=== PATIENT | female | born 1960 | race Caucasian/White ===

== ENCOUNTER 2016-07-29 14:45 | Emergency (ER) | payer OTHER ==
[2016-07-29] MEDS ORDERED: LIDOCAINE 2% 10 ML MDV ONE (15:49)
== END 2016-07-29 16:13 | disposition home or self-care (01) ==
DX: L02.413 Cutaneous abscess of right upper limb (principal); Z87.891 Personal history of nicotine dependence

== ENCOUNTER 2017-02-07 14:43 | Outpatient (CLI) | payer OTHER ==
--- NOTE | 2017-02-08 08:59 | Ultrasound Report ---
PELVIC ULTRASOUND: 02/07/2017 CLINICAL INDICATION: Dysfunctional uterine bleeding. TECHNIQUE: Transabdominal pelvic ultrasound performed for global evaluation. Transvaginal pelvic ul trasound performed for detailed evaluation. Real-time scanning performed and static images obtained. FINDINGS: The uterus is anteverted, measuring 9.6 x 6.3 x 4.7 cm. The endometrial echo complex mario ures 15 mm. There is a 2.7 x 2.2 x 2.0 cm submucosal leiomyoma as well as a 3.5 x 2.8 x 2.5 cm anter ior subserosal leiomyoma and a 2.2 x 1.9 x 1.3 cm posterior intramural leiomyoma. The right ovary me asures 2.1 x 1.4 x 1.0 cm, and appears unremarkable. The left ovary measures 4.7 x 2.3 x 2.1 cm, and contains follicles. No free fluid is seen. IMPRESSION: SUBMUCOSAL LEIOMYOMA, WHICH CAN CONTRIBUTE TO DYSFUNCTIONAL UTERINE BLEEDING. OTHER LEI OMYOMAS IN THE UTERUS. LEFT OVARIAN FOLLICLES. JOB #: [id number] EXT JOB #:[id number]
== END 2017-02-07 14:44 | disposition home or self-care (01) ==
LOC: DI 14:43
PROVIDERS: ATTEND Internal Medicine
DX: D25.0 Submucous leiomyoma of uterus (principal); D25.1 Intramural leiomyoma of uterus; D25.2 Subserosal leiomyoma of uterus
CPT/HCPCS: 76830; 76856

== ENCOUNTER 2017-03-12 15:05 | Emergency (ER) | payer OTHER ==
[2017-03-12] MEDS ORDERED: PROMETHAZINE INJ 25 MG in SODIUM CHLORIDE 0.9% 50 ML IV STA (15:25)
[2017-03-12] MEDS ORDERED: SODIUM CHLORIDE 0.9% 1,000 ML IV ONE (15:25)
--- NOTE | 2017-03-12 15:34 | ED Physician Documentation ---
History of Present Illness - Stated complaint Stated Complaint: NAUSEA - Chief complaint Chief Complaint: General - History obtained from History obtained from: Patient, Family - History of Present Illness Timing: Yesterday Pain level max: 5 Pain level now: 4 - Additonal information Additional information: Patient is a 57-year-old female who complains of the room spinning around her since yesterday. This is accompanied by nausea and vomiting today. Developed a headache approximately 2 hours prior to arrival of coming into the emergency department. Has had a history of vertigo in the past, but states not this bad. Denies any focal weakness or numbness. Any difficulty with speech. No recent illnesses. No recent trauma. No new medications. No travel. Review of Systems Ten Systems: 10 systems reviewed and negative Constitutional: denies: Fever, Chills Nose: denies: Rhinorrhea / runny nose, Congestion Respiratory: denies: Cough GI: reports: Nausea, Vomiting. 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 - Present Medications Home Medications: Ambulatory Orders Medication Instructions Recorded Confirmed Meclizine HCl 25 mg PO Q6H PRN #20 tab.chew 03/12/17 Ondansetron Odt [Zofran] 4 mg TL Q6H PRN #10 tablet 03/12/17 - Allergies Allergies/Adverse Reactions: Allergies Allergy/AdvReac Type Severity Reaction Status Date / Time No Known Drug Allergies Allergy Unverified 06/02/16 07:05 - Social History Does the pt smoke?: No Smoking Status: Former smoker Does the pt drink ETOH?: Yes Does the pt have substance abuse?: No - Immunizations Immunizations are current?: No - POLST Patient has POLST: No PD ED PE NORMAL - Vitals Vital signs reviewed: Yes - General General: Alert and oriented X 3, No acute distress, Well developed/nourished - HEENT HEENT: PERRL, EOMI, Ears normal, Moist mucous membranes, Other (horizontal nystagmus present) - Neck Neck: Supple, no meningeal sign - Cardiac Cardiac: RRR, Strong equal pulses - Respiratory Respiratory: No respiratory distress, Clear bilaterally - Abdomen Abdomen: Soft, Non tender, Non distended - Back Back: No spinal TTP - Derm Derm: Warm and dry, No rash - Extremities Extremities: Normal ROM s pain, No edema - Neuro Neuro: Alert and oriented X 3, 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, No motor deficit, No sensory deficit, Normal speech, Other (+ hallpike to the L) - Psych Psych: Normal mood, Normal affect Results - Vitals Vitals: Vital Signs - 24 hr 03/12/17 03/12/17 15:10 17:56 Temperature 36.3 C L 36.2 C L Heart Rate 92 67 Respiratory 16 18 Rate Blood Pressure 156/90 H 145/69 H O2 Saturation 95 98 Oxygen O2 Source Room air - Labs Labs: Laboratory Tests 03/12/17 03/12/17 15:35 15:35 WBC 10.9 H RBC 4.29 Hgb 11.6 L Hct 35.0 L MCV 81.7 MCH 27.0 MCHC 33.1 RDW 14.3 Plt Count 217 MPV 9.3 Neut # 9.0 H Lymph # 1.2 L Wise # 0.6 Eos # 0.0 Baso # 0.1 Absolute Nucleated RBC 0.00 Nucleated RBCs 0.0 Sodium 139 Potassium 3.5 Chloride 107 Carbon Dioxide 25 Anion Gap 7.0 BUN 10 Creatinine 0.6 Estimated GFR (MDRD) 103 Glucose 122 H Calcium 9.3 Total Bilirubin 0.4 AST 29 ALT 28 Alkaline Phosphatase 69 Total Protein 7.6 Albumin 4.2 Globulin 3.4 Albumin/Globulin Ratio 1.2 Lipase 46 PD MEDICAL DECISION MAKING - ED course Complexity details: re-evaluated patient, considered differential, d/w patient, d/w family ED course: Patient is a 57-year-old female who presents to the emergency department with acute onset of vertigo. Appears to be consistent with BPPV. No evidence of acute stroke. Treated with Phenergan for the nausea, then meclizine for the dizziness. When the vertigo improved, she was then put through a modified somersault maneuver for vertigo which improved her symptoms further. She is able to ambulate in the emergency department and tolerated p.o. No vomiting. Will place on medications for home and have her follow-up with her doctor. Patient counseled regarding signs and symptoms for which I believe and urgent re -evaluation would be necessary. Patient with good understanding of and agreement to plan and is comfortable going home at this time This document was made in part using voice recognition software. While efforts are made to proofread this document, sound alike and grammatical errors may occur. Departure - Departure Disposition: 01 Home, Self Care Clinical Impression: BPPV (benign paroxysmal positional vertigo) Qualifiers: Laterality: left Qualified Code(s): H81.12 - Benign paroxysmal vertigo, left ear Condition: Good Instructions: ED BPV Vertigo Follow-Up: your,doctor in 1 week [Other] Prescriptions: Meclizine HCl 25 mg PO Q6H PRN #20 tab.chew PRN Reason: Vertigo Ondansetron Odt [Zofran] 4 mg TL Q6H PRN #10 tablet PRN Reason: Nausea / Vomiting Comments: Return if you worsen. You can try the yonny maneuver or half somersault maneuver at home. [employer] has videos for both of these. Forms: Activity restrictions Discharge Date/Time: 03/12/17 18:09
[2017-03-12] MEDS ORDERED: PROMETHAZINE 25 MG/1 ML VIAL ONE (15:43)
[2017-03-12 15:54] LABS: ALBUMIN/GLOBULIN RATIO 1.2 (1.0-2.2); BILIRUBIN,TOTAL 0.4 mg/dL (0.2-1.0); CALCIUM 9.3 mg/dL (8.5-10.3); CREATININE 0.6 mg/dL (0.4-1.0); POTASSIUM 3.5 mmol/L (3.5-5.0); TOTAL PROTEIN 7.6 g/dL (6.7-8.2)
[2017-03-12 16:01] LABS: BASOPHILS # (AUTO) 0.1 10^3/uL (0.0-0.1); BASOPHILS % (AUTO) 0.6 %; EOSINOPHILS % (AUTO) 0.3 %; HGB - HEMOGLOBIN 11.6 g/dL (12.0-16.0); LYMPHOCYTES # (AUTO) 1.2 10^3/uL (1.5-3.5); LYMPHOCYTES % (AUTO) 10.9 %; MEAN CORPUSCULAR HGB CONC 33.1 g/dL (32.0-36.0); MEAN CORPUSCULAR VOLUME 81.7 fL (81.0-99.0); MEAN PLATELET VOLUME 9.3 fL (7.9-10.8); MONOCYTES # (AUTO) 0.6 10^3/uL (0.0-1.0); MONOCYTES % (AUTO) 5.8 %; NEUTROPHILS % (AUTO) 82.4 %; RED BLOOD COUNT 4.29 10^6/uL (4.20-5.40); RED CELL DISTRIBUTION WIDTH 14.3 % (12.0-15.0); UNCORRECTED WHITE BLOOD COUNT 10.9 x10^3/uL; WHITE BLOOD COUNT 10.9 x10^3/uL (4.8-10.8)
[2017-03-12] MEDS ORDERED: MECLIZINE 12.5 MG TABLET PO STA (16:09)
[2017-03-12] MEDS ORDERED: MECLIZINE 12.5 MG TABLET PO ONE (16:30)
[2017-03-12 17:59] VITALS: BP 145/69
== END 2017-03-12 18:09 | disposition home or self-care (01) ==
LOC: ED 15:05
DX: H81.10 Benign paroxysmal vertigo, unspecified ear (principal); Z96.659 Presence of unspecified artificial knee joint; Z87.891 Personal history of nicotine dependence
CPT/HCPCS: 36415; 80053; 83690; 85025; 96365; 99283; 99284; A9270; J7040

== ENCOUNTER 2018-09-13 08:16 | Outpatient (CLI) | payer OTHER ==
--- NOTE | 2018-09-13 20:30 | Ultrasound Report ---
Reason: ABNORMAL RESULTS OF LIVER FUNCTION STUDIES Procedure Date: 09/13/2018 Accession Number: [id number] / [id number] Procedure: US - Abdomen Limited CPT Code: FULL RESULT: EXAM: ABDOMEN ULTRASOUND LIMITED, RUQ EXAM DATE: 09/13/2018 08:25 AM. CLINICAL HISTORY: ABNORMAL RESULTS OF LIVER FUNCTION STUDIES. COMPARISON: None. TECHNIQUE: Real-time scanning was performed with static images obtained. FINDINGS: Liver: The liver is echogenic, compatible with fatty infiltration. It measures 17.8 cm. Main portal vein flow: Hepatopetal. Gallbladder: Cholelithiasis. No wall thickening or pericholecystic fluid. Biliary System: CBD measures 3 mm. No intrahepatic or extrahepatic ductal dilatation. Other: No right hydronephrosis. Likely right nephrolithiasis. IMPRESSION: Cholelithiasis, without evidence of acute cholecystitis or biliary obstruction. Fatty infiltration of the liver. Likely right nephrolithiasis, without hydronephrosis. RADIA
== END 2018-09-13 08:17 | disposition home or self-care (01) ==
LOC: DI 08:16
PROVIDERS: ATTEND Nurse Practitioner Family
DX: K80.20 Calculus of gallbladder without cholecystitis without obstruction (principal); K76.0 Fatty (change of) liver, not elsewhere classified
CPT/HCPCS: 76705

== ENCOUNTER 2020-02-22 09:01 | Outpatient (CLI) | payer BC ==
--- NOTE | 2020-02-22 10:03 | CT Report ---
PROCEDURE: LOWER EXTREMITY WO - RT INDICATIONS: PAIN IN RIGHT KNEE TECHNIQUE: Noncontrast 3 mm axial sections acquired of the right knee, with coronal and sagittal reformats. COMPARISON: None. FINDINGS: Image quality: Excellent. Bones: No acute fracture is identified. There is mild to moderate joint space narrowing in the media l femorotibial compartment. Mild joint space narrowing is seen in the lateral and anterior compartmen ts. There is mild patella guy. 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 The tibial tubercle-trochlear groove d istance is 1.3 cm. Soft tissues: There is mild generalized infiltration of the musculature surrounding the knee. No sig nificant joint effusion is present. The articular cartilages, menisci, ligaments, and tendons are not well evaluated with CT. IMPRESSION: 1. No acute fracture. 2. 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 3. Mild patella guy. 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 The tibial tubercle trochlear groove distance is within normal limits. Reviewed by: Francisco Thomas MD on 02/22/2020 10:02 AM PDT Approved by: Francisco Thomas MD on 02/22/2020 10:02 AM PDT Station ID: [id number]
== END 2020-02-22 09:02 | disposition home or self-care (01) ==
LOC: DI 09:01
PROVIDERS: ATTEND Nurse Practitioner Family
DX: M17.11 Unilateral primary osteoarthritis, right knee (principal)

== ENCOUNTER 2020-09-17 09:59 | Emergency (ER) | payer BC ==
--- NOTE | 2020-09-17 10:46 | XRAY Report ---
PROCEDURE: Chest 1 View X-Ray INDICATIONS: Chest pain TECHNIQUE: One view of the chest was acquired. COMPARISON: Thoracic spine radiographs 01/06/2015. FINDINGS: Surgical changes and devices: None. Lungs and pleura: No pleural effusions or pneumothorax. Lungs are clear. Mediastinum: Mediastinal contours appear normal. Heart size is within normal limits. Bones and chest wall: No suspicious bony lesions. Overlying soft tissues appear unremarkable. IMPRESSION: No acute cardiopulmonary abnormality. Reviewed by: Krishna Sorensen MD on 09/17/2020 10:45 AM [facility] Approved by: Krishna Sorensen MD on 09/17/2020 10:45 AM [facility] Station ID: [id number]
[2020-09-17 10:48] LABS: BASOPHILS % (AUTO) 0.7 %; EOSINOPHILS # (AUTO) 0.1 10^3/uL (0.0-0.7); HCT - HEMATOCRIT 46.9 % (37.0-47.0); HGB - HEMOGLOBIN 15.7 g/dL (12.0-16.0); LYMPHOCYTES # (AUTO) 1.3 10^3/uL (1.5-3.5); LYMPHOCYTES % (AUTO) 20.7 %; MEAN CORPUSCULAR HEMOGLOBIN 31.9 pg (27.0-31.0); MEAN CORPUSCULAR HGB CONC 33.5 g/dL (32.0-36.0); MEAN CORPUSCULAR VOLUME 95.3 fL (81.0-99.0); MEAN PLATELET VOLUME 9.8 fL (7.9-10.8); MONOCYTES # (AUTO) 0.5 10^3/uL (0.0-1.0); MONOCYTES % (AUTO) 8.8 %; NEUTROPHILS # (AUTO) 4.1 10^3/uL (1.5-6.6); NEUTROPHILS % (AUTO) 68.6 %; PLT - PLATELET COUNT 263 10^3/uL (130-450); RED BLOOD COUNT 4.92 10^6/uL (4.20-5.40); RED CELL DISTRIBUTION WIDTH 13.6 % (12.0-15.0)
--- NOTE | 2020-09-17 10:54 | ED Physician Documentation ---
PD HPI CHEST PAIN - Stated complaint Stated Complaint: CHEST PX,LT ARM PX - Chief complaint Chief Complaint: Cardiac - History obtained from History obtained from: Patient - History of Present Illness Timing - onset: Last night Timing - onset during: Rest Timing - details: Abrupt onset, Still present (much decreased to just some pain anteriorly now. Worse with breathing.) Quality: Aching, Sharp, Pain Location: Substernal, Left chest Radiation: No: Jaw, Neck, Back Improved by: Rest. No: Other medication (tried Ibuprofen without improvement.) Worsened by: Inspiration, Movement, Palpation Associated symptoms: No: Shortness of air, Nausea, Vomiting Similar symptoms before: Has not had sx before Review of Systems Constitutional: denies: Fever, Chills, Myalgias Nose: denies: Rhinorrhea / runny nose, Congestion Throat: denies: Sore throat Cardiac: reports: Chest pain / pressure. 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 - Present Medications Home Medications: Ambulatory Orders Medication Instructions Recorded Confirmed Meclizine HCl 25 mg PO Q6H PRN #20 tab.chew 03/12/17 Ondansetron Odt [Zofran] 4 mg TL Q6H PRN #10 tablet 03/12/17 Naproxen [EC-Naproxen] 500 mg PO BID #20 09/17/20 Oxycodone HCl/Acetaminophen 1 each PO Q6H PRN #20 tablet 09/17/20 [Percocet 5-325 mg Tablet] - Allergies Allergies/Adverse Reactions: Allergies Allergy/AdvReac Type Severity Reaction Status Date / Time No Known Drug Allergies Allergy Verified 09/17/20 10:09 - Social History Does the pt smoke?: No Smoking Status: Never smoker Does the pt drink ETOH?: Yes Does the pt have substance abuse?: No - Immunizations Immunizations are current?: No - POLST Patient has POLST: No PD ED PE NORMAL - Vitals Vital signs reviewed: Yes - General General: Alert and oriented X 3, No acute distress, Well developed/nourished - HEENT HEENT: Atraumatic - Neck Neck: Supple, no meningeal sign, No adenopathy - Cardiac Cardiac: RRR, No murmur - Respiratory Respiratory: Clear bilaterally, Other (some chestwall tenderness left sternal border) - Abdomen Abdomen: Soft, Non tender (no tenderness in GB area. ) - Derm Derm: Normal color, Warm and dry, No rash - Neuro Neuro: Alert and oriented X 3, No motor deficit, Normal speech Results - Vitals Vitals: Vital Signs - 24 hr 09/17/20 09/17/20 09/17/20 10:09 10:41 11:11 Temperature 36.9 C Heart Rate 84 84 66 Respiratory 20 18 19 Rate Blood Pressure 171/110 H 122/83 H 196/107 H O2 Saturation 94 100 93 09/17/20 09/17/20 09/17/20 11:30 12:00 12:30 Temperature Heart Rate 66 62 68 Respiratory 15 14 16 Rate Blood Pressure 209/101 H 184/100 H 183/99 H O2 Saturation 95 94 95 Oxygen O2 Source Room air - EKG (time done) 10:02 Rhythm: NSR (with some baseline artifact) [place]: Normal Intervals: Normal IA QRS: Normal Ischemia: Normal ST segments. No: ST elevation c/w ischemia, ST depression - Labs Labs: Laboratory Tests 09/17/20 09/17/20 09/17/20 10:27 10:27 10:27 WBC 6.0 RBC 4.92 Hgb 15.7 Hct 46.9 MCV 95.3 MCH 31.9 H MCHC 33.5 RDW 13.6 Plt Count 263 MPV 9.8 Neut # (Auto) 4.1 Lymph # (Auto) 1.3 L [place] # (Auto) 0.5 Eos # (Auto) 0.1 Baso # (Auto) 0.0 Absolute Nucleated RBC 0.00 Nucleated RBC % 0.0 Sodium 136 Potassium 3.9 Chloride 100 L Carbon Dioxide 26 Anion Gap 10.0 BUN 8 Creatinine 0.7 Estimated GFR (MDRD) 86 L Glucose 104 H Calcium 9.1 Total Bilirubin 1.1 H AST 83 H ALT 94 H Alkaline Phosphatase 108 Troponin I High Sens 3.3 Total Protein 7.3 Albumin 3.7 Globulin 3.6 Albumin/Globulin Ratio 1.0 Lipase 34 - Rads (name of study) chest xray 1 view Radiology: Prelim report reviewed (no acute process), See rad report PD MEDICAL DECISION MAKING - ED course Complexity details: reviewed results, considered differential (onset pain last night so negative trop should be definitive. CXR to assess for pulmonary cause, given the pleuritic component. ), d/w patient Departure - Departure Disposition: 01 Home, Self Care Clinical Impression: Chest pain Qualifiers: Chest pain type: chest pain on breathing Qualified Code(s): R07.1 - Chest pain on breathing Condition: Stable Record reviewed to determine appropriate education?: Yes Instructions: ED Chest Pain Costochondritis Prescriptions: Naproxen [EC-Naproxen] 500 mg PO BID #20 Oxycodone HCl/Acetaminophen [Percocet 5-325 mg Tablet] 1 each PO Q6H PRN #20 tablet PRN Reason: pain Comments: Your chest x-ray, EKG, blood tests are normal without any signs of more significant cause of your pain. The components of it sound musculoskeletal and perhaps some inflammation around the lung called pleurisy. Would treat this with anti-inflammatories such as naproxen twice daily for 7 to 10 days. Take it with food. To that add Tylenol or pain medicine if needed for worse pain. Recheck if not improving well over the next several days and resolved by 5 to 7 days. Return if worsening. Discharge Date/Time: 09/17/20 12:31
[2020-09-17 11:04] LABS: ALBUMIN 3.7 g/dL (3.2-5.5); BILIRUBIN,TOTAL 1.1 mg/dL (0.2-1.0); CALCIUM 9.1 mg/dL (8.5-10.3); CREATININE 0.7 mg/dL (0.4-1.0); POTASSIUM 3.9 mmol/L (3.5-5.0); TOTAL PROTEIN 7.3 g/dL (6.7-8.2)
[2020-09-17] MEDS ORDERED: KETOROLAC 30 MG/ML VIAL IVP STA (11:08)
[2020-09-17] MEDS ORDERED: ONDANSETRON 4 MG/2 ML VIAL IVP STA (11:09)
[2020-09-17] MEDS ORDERED: HYDROmorphone 1 MG/ML CARPUJECT IVP STA (11:09)
[2020-09-17 12:31] VITALS: BP 183/99
== END 2020-09-17 12:31 | disposition home or self-care (01) ==
LOC: ED 09:59
DX: R07.1 Chest pain on breathing (principal)
CPT/HCPCS: 36415; 71045; 80053; 83690; 84484; 85025; 93005; 96374; 96375; 99284; J1170

== ENCOUNTER 2021-03-26 08:00 | Outpatient (CLI) | payer BC ==
[2021-03-26 15:19] LABS: BASOPHILS # (AUTO) 0.1 10^3/uL (0.0-0.1); BASOPHILS % (AUTO) 1.2 %; EOSINOPHILS # (AUTO) 0.1 10^3/uL (0.0-0.7); EOSINOPHILS % (AUTO) 1.2 %; HCT - HEMATOCRIT 50.3 % (37.0-47.0); HGB - HEMOGLOBIN 16.7 g/dL (12.0-16.0); LYMPHOCYTES % (AUTO) 17.4 %; MEAN CORPUSCULAR HEMOGLOBIN 33.6 pg (27.0-31.0); MEAN CORPUSCULAR HGB CONC 33.2 g/dL (32.0-36.0); MEAN CORPUSCULAR VOLUME 101.2 fL (81.0-99.0); MEAN PLATELET VOLUME 10.1 fL (7.9-10.8); MONOCYTES # (AUTO) 0.5 10^3/uL (0.0-1.0); MONOCYTES % (AUTO) 8.7 %; NEUTROPHILS # (AUTO) 4.3 10^3/uL (1.5-6.6); NEUTROPHILS % (AUTO) 71.3 %; PLT - PLATELET COUNT 223 10^3/uL (130-450); RED BLOOD COUNT 4.97 10^6/uL (4.20-5.40); RED CELL DISTRIBUTION WIDTH 14.3 % (12.0-15.0)
[2021-03-26 15:36] LABS: ALBUMIN 3.8 g/dL (3.2-5.5); BILIRUBIN,TOTAL 2.6 mg/dL (0.2-1.0); CALCIUM 9.2 mg/dL (8.5-10.3); CREATININE 0.5 mg/dL (0.4-1.0); POTASSIUM 3.8 mmol/L (3.5-5.0); TOTAL PROTEIN 7.5 g/dL (6.7-8.2)
[2021-03-26 15:47] LABS: THYROID STIMULATING HORMONE 4.28 uIU/mL (0.34-5.60)
== END 2021-03-26 23:59 | disposition home or self-care (01) ==
LOC: LAB.S 08:00
PROVIDERS: ATTEND Emergency Medicine
DX: R03.0 Elevated blood-pressure reading, without diagnosis of hypertension (principal)
CPT/HCPCS: 36415; 80053; 84443; 85025

== ENCOUNTER 2021-06-10 07:51 | Outpatient (CLI) | payer BC ==
--- NOTE | 2021-06-10 12:10 | Ultrasound Report ---
PROCEDURE: Abdomen Limited INDICATIONS: ELEVATED LIVER ENZYMES TECHNIQUE: Real-time focused scanning was performed of the abdomen, with image documentation. COMPARISON: September 13, 2018 TECHNIQUE: Sonographic evaluation of the abdomen was performed. Evaluation was targeted in the right upper quadrant. FINDINGS: AORTA: The visualized abdominal aorta is normal. IVC: The visualized IVC is normal. LIVER: Increased echogenicity of the liver, compatible hepatic steatosis. The liver measures 22.5 c m in length. The portal vein is patent. PANCREAS: The visualized portions of the pancreas are normal. Gallbladder and biliary tree: No gallbladder wall thickening or pericholecystic fluid. Shadowing ga llstones are seen, measuring up to 1.2 cm. The common bile duct measures 4.1 mm RIGHT KIDNEY: No hydronephrosis. Measuring 11.5 cm in length. The renal cortex thickness measures 1 .3 cm. Echogenic focus in the interpolar region measuring up to 8 mm, compatible with nephrolithiasis . No ascites. IMPRESSION: 1.Hepatic steatosis. 2.Cholelithiasis. 3.Right nephrolithiasis. Reviewed by: Arley Colmenares MD on 06/10/2021 12:08 PM [facility] Approved by: Arley Colmenares MD on 06/10/2021 12:08 PM [facility] Station ID: [id number]
== END 2021-06-10 07:52 | disposition home or self-care (01) ==
LOC: DI 07:51
PROVIDERS: ATTEND Nurse Practitioner Family
DX: R74.01 Elevation of levels of liver transaminase levels (principal); K76.0 Fatty (change of) liver, not elsewhere classified; K80.20 Calculus of gallbladder without cholecystitis without obstruction; N20.0 Calculus of kidney

== ENCOUNTER 2021-09-12 09:35 | Emergency (ER) | payer BC ==
[2021-09-12] MEDS ORDERED: ONDANSETRON ODT 4 MG TABLET TL STA (09:43)
[2021-09-12 10:05] LABS: BASOPHILS % (AUTO) 0.5 %; EOSINOPHILS # (AUTO) 0.1 10^3/uL (0.0-0.7); EOSINOPHILS % (AUTO) 1.4 %; HCT - HEMATOCRIT 48.1 % (37.0-47.0); HGB - HEMOGLOBIN 16.3 g/dL (12.0-16.0); LYMPHOCYTES # (AUTO) 1.1 10^3/uL (1.5-3.5); LYMPHOCYTES % (AUTO) 13.4 %; MEAN CORPUSCULAR HGB CONC 33.9 g/dL (32.0-36.0); MEAN CORPUSCULAR VOLUME 97.4 fL (81.0-99.0); MEAN PLATELET VOLUME 9.8 fL (7.9-10.8); MONOCYTES # (AUTO) 0.8 10^3/uL (0.0-1.0); MONOCYTES % (AUTO) 10.5 %; NEUTROPHILS # (AUTO) 5.8 10^3/uL (1.5-6.6); NEUTROPHILS % (AUTO) 73.8 %; PLT - PLATELET COUNT 246 10^3/uL (130-450); RED BLOOD COUNT 4.94 10^6/uL (4.20-5.40); RED CELL DISTRIBUTION WIDTH 13.5 % (12.0-15.0); WHITE BLOOD COUNT 7.8 x10^3/uL (4.8-10.8)
[2021-09-12 10:08] LABS: BILIRUBIN,URINE NEGATIVE (NEGATIVE); GLUCOSE, URINE (UA) NEGATIVE (NEGATIVE); KETONES,URINE (UA) NEGATIVE (NEGATIVE); LEUKOCYTE ESTERASE, URINE NEGATIVE (NEGATIVE); NITRITE,URINE NEGATIVE (NEGATIVE); OCCULT BLOOD,URINE TRACE-INTA (NEGATIVE); PROTEIN,URINE NEGATIVE (NEGATIVE); UROBILINOGEN,URINE 0.2 (NORMAL) E.U./dL (NORMAL)
[2021-09-12 10:09] LABS: CLARITY,URINE CLEAR (CLEAR)
[2021-09-12 10:21] LABS: ALBUMIN 3.8 g/dL (3.2-5.5); ALBUMIN/GLOBULIN RATIO 1.1 (1.0-2.2); BILIRUBIN,TOTAL 1.9 mg/dL (0.2-1.0); CALCIUM 9.9 mg/dL (8.5-10.3); CREATININE 1.4 mg/dL (0.4-1.0); POTASSIUM 3.8 mmol/L (3.5-5.0); TOTAL PROTEIN 7.3 g/dL (6.7-8.2)
--- NOTE | 2021-09-12 10:25 | ED Physician Documentation ---
PD HPI ABD PAIN - Stated complaint Stated Complaint: LOWER BACK PX - Chief complaint Chief Complaint: Abd Pain - History obtained from History obtained from: Patient - History of Present Illness Timing - onset: Today, Last night Timing - duration: Hours Timing - details: Abrupt onset, Still present Quality: Aching, Sharp, Pain Location: RLQ Radiation: Right flank Improved by: No: Eating, Laying still Worsened by: No: Eating, Moving, Breathing Associated symptoms: Nausea, Vomiting (several times after onset of severe pain. No vomiting this morning.). No: Fever Similar symptoms before: Has not had sx before Recently seen: Clinic (seen about month or two ago for some abd pains. She states had USN RUQ that showed stones in the kidneys, gallstones, and some fatty liver.) Review of Systems Constitutional: denies: Fever, Chills Nose: denies: Rhinorrhea / runny nose, Congestion Throat: denies: Sore throat Respiratory: denies: Cough GI: reports: Abdominal Pain, Nausea, Vomiting. denies: Constipation, Diarrhea, Bloody / black stool : reports: Hematuria. 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: Dilation and currettage - Present Medications Home Medications: Ambulatory Orders Medication Instructions Recorded Confirmed Fluoxetine HCl [Prozac] 20 mg PO DAILY 09/12/21 09/12/21 HYDROcod/ACETAM 5/325 [[place] 5/325] 1 ea PO Q6H PRN #12 tablet 09/12/21 Losartan [Cozaar] 50 mg PO DAILY 09/12/21 09/12/21 Naproxen 250 mg PO TID 5 Days #15 tablet 09/12/21 Ondansetron Odt [Zofran] 4 mg TL Q6H PRN #10 tablet 09/12/21 - Allergies Allergies/Adverse Reactions: Allergies Allergy/AdvReac Type Severity Reaction Status Date / Time No Known Drug Allergies Allergy Verified 09/12/21 09:40 - Social History Does the pt smoke?: No Smoking Status: Never smoker Does the pt drink ETOH?: Yes Does the pt have substance abuse?: No - Immunizations Immunizations are current?: No - POLST Patient has POLST: No PD ED PE NORMAL - Vitals Vital signs reviewed: Yes - General General: Alert and oriented X 3, Well developed/nourished, Other (appears in pain) - Neck Neck: Supple, no meningeal sign, No adenopathy - Cardiac Cardiac: RRR, No murmur - Respiratory Respiratory: Clear bilaterally - Abdomen Abdomen: Normal bowel sounds, Soft, Non distended, No organomegaly, Other (tender right lower abd and right flank area. ) - Female Female : Deferred - Rectal Rectal: Deferred - Derm Derm: Normal color, Warm and dry - Extremities Extremities: No tenderness to palpate, Normal ROM s pain, No edema, No calf tenderness / cord - Neuro Neuro: Alert and oriented X 3, No motor deficit, Normal speech Results - Vitals Vitals: Vital Signs - 24 hr 09/12/21 12:50 Temperature 36.7 C Heart Rate 65 Respiratory 16 Rate Blood Pressure 147/73 H O2 Saturation 96 Oxygen O2 Source Room air - Labs Labs: Laboratory Tests 09/12/21 09/12/21 09/12/21 09:53 09:53 09:53 WBC 7.8 RBC 4.94 Hgb 16.3 H Hct 48.1 H MCV 97.4 MCH 33.0 H MCHC 33.9 RDW 13.5 Plt Count 246 MPV 9.8 Neut # (Auto) 5.8 Lymph # (Auto) 1.1 L [place] # (Auto) 0.8 Eos # (Auto) 0.1 Baso # (Auto) 0.0 Absolute Nucleated RBC 0.00 Nucleated RBC % 0.0 Sodium 139 Potassium 3.8 Chloride 102 Carbon Dioxide 25 Anion Gap 12.0 BUN 14 Creatinine 1.4 H Estimated GFR (MDRD) 38 L Glucose 114 H Calcium 9.9 Total Bilirubin 1.9 H AST 64 H ALT 91 H Alkaline Phosphatase 122 H Total Protein 7.3 Albumin 3.8 Globulin 3.5 Albumin/Globulin Ratio 1.1 Lipase 37 Urine Color LIGHT YELLOW Urine Clarity CLEAR Urine pH 7.0 Ur Specific [place] <=1.005 Urine Protein NEGATIVE Urine Glucose (UA) NEGATIVE Urine Ketones NEGATIVE Urine Occult Blood TRACE-INTA Urine Nitrite NEGATIVE Urine Bilirubin NEGATIVE Urine Urobilinogen 0.2 (NORMAL) Ur Leukocyte Esterase NEGATIVE Ur Microscopic Review NOT INDICATED Urine Culture Comments NOT INDICATED - Rads (name of study) abd/pelvic CT Radiology: Prelim report reviewed (no acute process. No renal/ureteral stones.), See rad report PD MEDICAL DECISION MAKING - ED course Complexity details: reviewed results (CT without acute process. PAtient was feeling improved with pain meds prior to CT and on recheck has only mild pain left. Consider stone passed prior to CT. SHe did have stone right kidney recently and none now, so presume it passed. ), considered differential (sounds like kidney stone pain in character. REcent U/S Jun 2021 showed 8 mm stone right kidney. CAn get CT to see if passing, since was rather larger.), d/w patient Departure - Departure Disposition: 01 Home, Self Care Clinical Impression: Flank pain, Ureterolithiasis Nausea and vomiting Qualifiers: Vomiting type: unspecified Qualified Code(s): R11.2 - Nausea with vomiting, unspecified Condition: Stable Record reviewed to determine appropriate education?: Yes Instructions: ED Stone Renal Passed Follow-Up: NORMA HOUSTON ARNP [Primary Care Provider] - Prescriptions: Naproxen 250 mg PO TID 5 Days #15 tablet HYDROcod/ACETAM 5/325 [[place] 5/325] 1 ea PO Q6H PRN #12 tablet PRN Reason: Pain Ondansetron Odt [Zofran] 4 mg TL Q6H PRN #10 tablet PRN Reason: Nausea / Vomiting Comments: Your urine test appears normal here without any signs of infection. The CT scan does not show any kidney stones. I would presume you passed the one that you have had recently and your episode of pain with its intensity associated with nausea and such likely represented the passing of the stone this morning. No other abnormalities acutely on the CT scan to account for your pain. You do have incidental gallstones but you are not having pain in that area. There is also some hernias noted around the bellybutton area but again you are not tender in those areas. You may still experience some aching and pain over the next couple of days. Stay well-hydrated. Consider anti-inflammatory of naproxen 2-3 times daily with food. To that add ondansetron if needed for nausea and Tylenol if needed for pain. It will be unlikely to have worse pain at this point but I can prescribe a few hydrocodone tablets in case. I transmitted your prescriptions to [facility] in [place]. Follow-up with your primary care if your occurring or persisting episodes of back or abdominal pain. Other considerations for the pain could be musculoskeletal or nerve root type impingement. However your previous symptoms and current symptoms would be more suggestive of the stone. I am prescribing a short course of narcotic pain medication for you. These are potentially dangerous and addictive medications that should be used carefully. These medications may constipate you. Take an [id number] stool softener such as docusate twice daily with plenty of water while taking these medications. If you go 24 hours without a bowel movement, take plnn-xof-tfabell MiraLAX, per package instructions. Do not drink or drive while taking these medications. If you received narcotic or sedating medications while in the emergency department do not drive for 24 hours. Store this medication in a safe, secure place and out of reach of children. It is a violation of federal law to give or sell this medication to another person or to use in a manner other than prescribed. The ED will not refill narcotic prescriptions, including prescriptions lost or stolen. You can dispose of unwanted medications at the [facility]'s office or at several pharmacies such as [facility]. Discharge Date/Time: 09/12/21 12:51
[2021-09-12] MEDS ORDERED: ONDANSETRON 4 MG/2 ML VIAL IVP STA (10:34)
[2021-09-12] MEDS ORDERED: KETOROLAC 30 MG/ML VIAL IVP STA (10:34)
[2021-09-12] MEDS ORDERED: HYDROmorphone 1 MG/ML CARPUJECT IVP STA (10:34)
[2021-09-12] MEDS ORDERED: SODIUM CHLORIDE 0.9% 1,000 ML IV STA (10:34)
--- NOTE | 2021-09-12 11:18 | CT Report ---
PROCEDURE: Abdomen/Pelvis WO INDICATIONS: right flank/abd pain TECHNIQUE: Noncontrast 5 mm thick sections acquired from the diaphragms to the symphysis. 5 mm coronal and sagi ttal reformats were then performed. For radiation dose reduction, the following was used: automated exposure control, adjustment of mA and/or kV according to patient size. COMPARISON: None. FINDINGS: Image quality: Excellent. ABDOMEN: Lung bases: Lung bases are clear. Heart size is normal. Solid organs: Liver and spleen are normal in size. Gallbladder contains multiple gallstones. There is no gallbladder wall thickening. Pancreas is normal in contours. No adrenal nodules. Kidneys are normal in size, without hydronephrosis or nephrolithiasis. Peritoneum and bowel: Unenhanced bowel loops demonstrate normal wall thickness and caliber. Scattere d diverticulosis without evidence of diverticulitis. No free fluid or air. Nodes and vessels: No retroperitoneal or mesenteric adenopathy by size criteria. Aorta and inferior vena cava are normal in caliber. Miscellaneous: The anterior rectus musculature is thin. There are multiple small ventral hernias pres ent. There is subtle inflammatory change in the herniated subcutaneous fat. PELVIS: Genitourinary: Bladder wall thickness is normal. Miscellaneous: No inguinal hernias or adenopathy. Uterus is surgically absent. Bones: No suspicious bony lesions. No vertebral body compression fractures. IMPRESSION: 1. Cholelithiasis. 2. No evidence of renal stone, ureteral stone, or hydronephrosis. 3. Multiple small ventral abdominal hernias containing herniated fat. There is mild inflammatory beckman ge within the inflammatory fat. 4. No evidence of acute abdominal process. Question: Does the location of patient pain correlate with the ventral hernias? Reviewed by: Neville Shah MD on 09/12/2021 10:[address] [facility] Approved by: Neville Shah MD on 09/12/2021 10:[address] [facility] Station ID: [id number]
[2021-09-12 12:51] VITALS: BP 147/73
== END 2021-09-12 12:51 | disposition home or self-care (01) ==
LOC: ED 09:35
DX: N20.1 Calculus of ureter (principal)
CPT/HCPCS: 36415; 74176; 80053; 81003; 83690; 85025; 96361; 96374; 96375; 99282; 99284; J1170; Q0162; 81001; 87086

== ENCOUNTER 2022-12-10 08:00 | Outpatient (CLI) | payer BC | END 2022-12-10 23:59 | disposition home or self-care (01) | LOC: LAB 08:00 | PROVIDERS: ATTEND Physician Assistant Medical | DX: L03.114 Cellulitis of left upper limb (principal) | CPT/HCPCS: 87070; 87205 ==

== ENCOUNTER 2024-02-17 11:57 | Emergency (ER) | payer BC, OTHER ==
--- NOTE | 2024-02-17 12:10 | ED Physician Documentation ---
PD HPI ABD PAIN - Stated complaint Stated Complaint: UPPER ABD PAIN - Chief complaint Chief Complaint: Abd Pain - History obtained from History obtained from: Patient - History of Present Illness Timing - onset: How many weeks ago (3) Timing - duration: Weeks (3) Timing - details: Gradual onset, Still present, Waxing and waning Quality: Cramping, Aching, Pain Location: RUQ, Epigastric Associated symptoms: Nausea, Vomiting, Loss of appetite, Weight loss (states 20 lbs in 3 weeks.). No: Fever, Diarrhea, Dysuria Similar symptoms before: Has not had sx before Recently seen: Clinic (seen in PCP clinic 2 days ago and had labs drawn showing elevated LFTs. seen again today, and referred to ED for testing/eval.) Review of Systems Constitutional: denies: Fever, Chills Nose: denies: Rhinorrhea / runny nose, Congestion Throat: denies: Sore throat Respiratory: denies: Cough Neurologic: reports: Generalized weakness. 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: Dilation and currettage - Present Medications Home Medications: Ambulatory Orders Medication Instructions Recorded Confirmed Fluoxetine HCl [Prozac] 20 mg PO DAILY 09/12/21 09/12/21 HYDROcod/ACETAM 5/325 [[place] 5/325] 1 ea PO Q6H PRN #12 tablet 09/12/21 Losartan [Cozaar] 50 mg PO DAILY 09/12/21 09/12/21 Naproxen 250 mg PO TID 5 Days #15 tablet 09/12/21 Ondansetron Odt [Zofran] 4 mg TL Q6H PRN #10 tablet 09/12/21 Dicyclomine [Bentyl] 10 mg PO BID PRN #20 cap 02/17/24 HYDROcod/ACETAM 5/325 [[place] 5/325] 1 ea PO Q6H PRN #18 tablet 02/17/24 Ondansetron Odt [Zofran] 4 mg TL Q6H PRN #20 tablet 02/17/24 Pantoprazole [Protonix] 40 mg PO DAILY 30 Days #30 tablet 02/17/24 Sucralfate [Carafate] 1 gm PO ACHS 5 Days #200 ml 02/17/24 - Allergies Allergies/Adverse Reactions: Allergies Allergy/AdvReac Type Severity Reaction Status Date / Time No Known Drug Allergies Allergy Verified 02/17/24 12:08 - Social History Does the pt smoke?: No Smoking Status: Never smoker Does the pt drink ETOH?: Yes ETOH Use: Liquor (had been more regular, currently about 2 shots of liquor daily. ) Does the pt have substance abuse?: No - Immunizations Immunizations are current?: No - POLST Patient has POLST: No PD ED PE NORMAL - Vitals Vital signs reviewed: Yes - General General: Alert and oriented X 3, Well developed/nourished Results - Vitals Vitals: Vital Signs - 24 hr 02/17/24 02/17/24 02/17/24 12:03 14:38 16:23 Temperature 36.7 C Heart Rate 91 75 80 Respiratory 18 18 18 Rate Blood Pressure 164/89 H 152/80 H 150/86 H O2 Saturation 95 97 02/17/24 19:39 Temperature Heart Rate 79 Respiratory 18 Rate Blood Pressure 160/88 H O2 Saturation 96 Oxygen O2 Source Room air - Labs Labs: Laboratory Tests 02/17/24 02/17/24 02/17/24 12:21 12:21 14:10 WBC 9.1 RBC 4.60 Hgb 15.7 Hct 46.8 MCV 101.7 H MCH 34.1 H MCHC 33.5 RDW 12.7 Plt Count 326 MPV 10.0 Neut # (Auto) 6.5 Lymph # (Auto) 1.6 Preston # (Auto) 0.8 Eos # (Auto) 0.1 Baso # (Auto) 0.1 Absolute Nucleated RBC 0.00 Nucleated RBC % 0.0 Sodium 135 Potassium 3.9 Chloride 101 Carbon Dioxide 27 Anion Gap 7.0 BUN 7 Creatinine 0.5 L Estimated GFR (MDRD) 125 Glucose 115 H Calcium 10.4 H Total Bilirubin 1.6 H AST 202 H ALT 93 H Alkaline Phosphatase 185 H Total Protein 7.6 Albumin 3.9 Globulin 3.7 Albumin/Globulin Ratio 1.1 Lipase 66 Urine Color DARK YELLOW Urine Clarity CLEAR Urine pH 6.0 Ur Specific Henderson 1.020 Urine Protein NEGATIVE Urine Glucose (UA) NEGATIVE Urine Ketones NEGATIVE Urine Occult Blood MODERATE H Urine Nitrite NEGATIVE Urine Bilirubin SMALL H Urine Urobilinogen 1 (NORMAL) Ur Leukocyte Esterase TRACE H Urine RBC 6-10 H Urine WBC 0-3 Ur Squamous Epith Cells FEW Squamous Amorphous Sediment Few Urine Bacteria Rare Urine Mucus Few Strands Ur Microscopic Review INDICATED Urine Culture Comments INDICATED PD Medical Decision Making - ED course Complexity details: reviewed results (CT abd with gallstones but not apparent cholecystitis. CBD appears normal. However, does have pain and LFT elevation, so I felt MRCP appropriate as CT not fully accurate for this. MRCP without obstruction of CBD nor any signs cholesystitis. incidental 2 mm cyst at tail pancreas. No other acute. ), re-evaluated patient (pain meds given at interval. Prolonged ED stay for labs, imaging and then MRCP with report. ), considered differential (upper abd pain and elevated LFTs. consider GB, CBD obstruction as concern. Can get CT vs US. If concern for CBD obstruction, MRCP would be most accurate. ), d/w patient, d/w corporate learning consultant (ODr. Joyce just phone consult. Review of prior labs show elevated LFTs for pt on record since 2020. Prior gallstones on US 2020. Does not appear acute process and no signs of gallbladder inflammation. Presume pain is otherwise, such as gastritis/duodenitis and suggests treating that way. ) Departure - Departure Disposition: 01 Home, Self Care Clinical Impression: Right upper quadrant abdominal pain, Elevated liver enzymes, Abnormal weight loss, Nausea and vomiting, Gastric ulcer Condition: Stable Record reviewed to determine appropriate education?: Yes Instructions: ED PUD Vs Gastritis Follow-Up: Day Wheeler ARNP [Primary Care Provider] - Prescriptions: Dicyclomine [Bentyl] 10 mg PO BID PRN #20 cap PRN Reason: Abdominal Pain Sucralfate [Carafate] 1 gm PO ACHS 5 Days #200 ml HYDROcod/ACETAM 5/325 [[place] 5/325] 1 ea PO Q6H PRN #18 tablet PRN Reason: Pain Pantoprazole [Protonix] 40 mg PO DAILY 30 Days #30 tablet Ondansetron Odt [Zofran] 4 mg TL Q6H PRN #20 tablet PRN Reason: Nausea / Vomiting Comments: Your CT scan showed some gallstones but no obvious gallbladder wall thickening. They did not very well identify the common bile duct though it appeared normal. However given your elevated liver enzymes and the continued pain even having, the concern was for clogging of the bile duct. Therefore the MRCP was performed to best evaluate that. This is a very accurate at looking at that area and it showed no signs of gallbladder wall thickening or inflammation and no signs of any obstruction/stone/blockage of the common bile duct. They saw an incidental 2 mm cyst at the tail of the pancreas. This did not appear at all like a tumor and is a common finding. Otherwise there is a little bit of enlarged liver. The remainder of your abdomen and pelvis on the CT scan did not show any other acute abnormality. Your blood tests showed elevation of liver enzymes but comparable to ones you have had over the last 2 or 3 years. This may be more of a chronic finding for you or repeated mild elevations related to illness or vomiting or can be from alcohol use or other irritants. At this point it does not appear to be an acute liver inflammation. With all this said, there are processes that would hurt that would not show up on the above testing. The above tests were necessary to exclude other problems. I did talk with our on-call surgeon and putting the information together we treated most likely as a gastritis/ulcer. It can even be irritation not only in the stomach but the first part of the intestine (duodenum) which would give the pain more over to the gallbladder area. The suggestion is to treat as an ulcer with a acid reducing medicine called pantoprazole daily for the next month combined with coating the stomach periodically through the day for the next 5 days anyway to reduce irritation and discomfort. This is called sacral fate. Additionally ondansetron if needed for nausea and then some amounts of Tylenol if needed for pains. I would avoid anti-inflammatory such as ibuprofen or naproxen as this would further irritate an ulcer. To these add dicyclomine if needed for spasm/pain or hydrocodone/acetaminophen if needed for worse pain. SL several prescriptions to the [facility] in [place]. [place] [facility] [place]. Return to the ER if worsening symptoms despite the above medicines. I would defer to your primary care to see if she wanted to set you up for a upper endoscopy to further evaluate regarding ulcer. When I talk to the surgeon professional system administrator, that was a possible recommendation but is not required in order to start treating it as ulcer for now. Forms: PCP List Discharge Date/Time: 02/17/24 19:39
[2024-02-17 12:26] LABS: BASOPHILS # (AUTO) 0.1 10^3/uL (0.0-0.1); BASOPHILS % (AUTO) 0.9 %; EOSINOPHILS # (AUTO) 0.1 10^3/uL (0.0-0.7); EOSINOPHILS % (AUTO) 1.1 %; HCT - HEMATOCRIT 46.8 % (37.0-47.0); HGB - HEMOGLOBIN 15.7 g/dL (12.0-16.0); LYMPHOCYTES # (AUTO) 1.6 10^3/uL (1.5-3.5); LYMPHOCYTES % (AUTO) 17.2 %; MEAN CORPUSCULAR HEMOGLOBIN 34.1 pg (27.0-31.0); MEAN CORPUSCULAR HGB CONC 33.5 g/dL (32.0-36.0); MEAN CORPUSCULAR VOLUME 101.7 fL (81.0-99.0); MONOCYTES # (AUTO) 0.8 10^3/uL (0.0-1.0); MONOCYTES % (AUTO) 8.4 %; NEUTROPHILS # (AUTO) 6.5 10^3/uL (1.5-6.6); PLT - PLATELET COUNT 326 10^3/uL (130-450); RED CELL DISTRIBUTION WIDTH 12.7 % (12.0-15.0); WHITE BLOOD COUNT 9.1 x10^3/uL (4.8-10.8)
[2024-02-17 12:39] LABS: ALBUMIN 3.9 g/dL (3.2-5.5); ALBUMIN/GLOBULIN RATIO 1.1 (1.0-2.2); BILIRUBIN,TOTAL 1.6 mg/dL (0.2-1.0); CALCIUM 10.4 mg/dL (8.5-10.3); CREATININE 0.5 mg/dL (0.6-1.3); POTASSIUM 3.9 mmol/L (3.5-4.5); TOTAL PROTEIN 7.6 g/dL (6.4-8.9)
[2024-02-17] MEDS: KETOROLAC 15 MG/ML VIAL IVP STA (13:22)
[2024-02-17] MEDS: ONDANSETRON 4 MG/2 ML VIAL IVP STA ×2 (13:22→19:26)
[2024-02-17] MEDS: HYDROmorphone 1 MG/ML CARPUJECT IVP STA ×2 (13:22→16:26)
[2024-02-17] MEDS: SODIUM CHLORIDE 0.9% 1,000 ML IV STA (13:22)
[2024-02-17] MEDS ORDERED: iohexoL-300 100 ML VIAL ONE (13:50)
[2024-02-17 14:17] LABS: BILIRUBIN,URINE SMALL (NEGATIVE); GLUCOSE, URINE (UA) NEGATIVE (NEGATIVE); KETONES,URINE (UA) NEGATIVE (NEGATIVE); LEUKOCYTE ESTERASE, URINE TRACE (NEGATIVE); NITRITE,URINE NEGATIVE (NEGATIVE); OCCULT BLOOD,URINE MODERATE (NEGATIVE); PROTEIN,URINE NEGATIVE (NEGATIVE); UROBILINOGEN,URINE 1 (NORMAL) E.U./dL (NORMAL)
[2024-02-17 14:18] LABS: CLARITY,URINE CLEAR (CLEAR)
[2024-02-17 14:24] LABS: AMORPHOUS SEDIMENT,UR Few /LPF; BACTERIA,URINE Rare /HPF (None Seen); MUCUS,URINE Few Strands; SQUAMOUS EPITHELIAL CELL,UR FEW Squamous (<= Few); WBC,URINE 0-3 /HPF (0-5)
--- NOTE | 2024-02-17 15:03 | CT Report ---
PROCEDURE: Abdomen/Pelvis W INDICATIONS: RUQ pain 3 weeks CONTRAST: 100ml omni 300 TECHNIQUE: After the administration of intravenous contrast, a CT scan of the abdomen and pelvis was performed. Images were recorded and evaluated at appropriate window settings. Reformats: coronal and sagittal. F or radiation dose reduction, the following was used: automated exposure control, adjustment of mA and /or kV according to patient size. COMPARISON: 09/12/2021 FINDINGS: Image quality: Diagnostic Lower chest: Basal scarring and atelectasis. Mild hiatal hernia. Normal heart size Liver: Possible steatosis and hepatomegaly. Gallbladder and biliary system: Cholelithiasis. Nondilated biliary tree Pancreas: No ductal dilation Spleen: Nonenlarged Adrenals: No discrete nodules Kidneys: No solid mass or hydronephrosis Vessels and lymph nodes: The main portal vein is patent. No pathologic lymph nodes or abdominal aorti c aneurysm. Bowel and peritoneum: No evidence of small bowel obstruction. No pathologic ascites or drainable absc ess. Body wall: There are multiple fat-containing midline ventral hernias containing fat and omentum. No o bstructed bowel Pelvis: Bladder is unremarkable. Uterus is absent. There are possible CT suggestion of pelvic descent Bones: No acute or suspicious osseous finding. There are degenerative changes. Right sacral bone juan nd again seen. IMPRESSION: No acute small bowel obstruction. There are multiple ventral hernias containing fat and mildly conges bartolome omentum. Correlate with location of symptoms. Cholelithiasis, hepatomegaly, possible steatosis. Other findings above. Reviewed by: Frandy Rodriguez MD on 02/17/2024 3:01 PM PDT Approved by: Frandy Rodriguez MD on 02/17/2024 3:01 PM PDT Station ID: [id number]
[2024-02-17] MEDS: iohexoL-300 100 ML VIAL IVP ONE (16:49)
--- NOTE | 2024-02-17 18:14 | MRI Report ---
PROCEDURE: MRCP WO INDICATIONS: gallstones, RUQ pain, elevated LFTs. CONTRAST: None TECHNIQUE: Coronal ultra fast SE through the abdomen, axial 2-D spoiled GE in- and [id number], and breath-hold T2 FSE with fat saturation through the biliary system and pancreas. Oblique coronal and axial thin- slice ultra fast SE, radial thick-slab ultra fast SE centered on the extrahepatic bile ducts. COMPARISON: Same day CT FINDINGS: Image quality: Excellent. Gallbladder: Cholelithiasis without wall thickening. Biliary tree: No intrahepatic or extrahepatic dilation. No filling defects within the common bile tawnya t. Pancreas: Pancreatic divisum versus prominent accessory duct. 2 mm cyst in the pancreatic tail (serie s 6, image 15). Lung bases and heart: Unremarkable. Liver: Severe hepatic steatosis. Macrolobulated liver contour. Spleen: No splenomegaly. Adrenals: No adrenal nodule. Kidneys and ureters: No hydronephrosis. No renal cystic lesion which requires follow up. No solid mas s. Bowel and peritoneum: No bowel distension. No pathologic free fluid. Lymph nodes: No central or retroperitoneal adenopathy. Vessels: No infrarenal aortic aneurysm. Bones: No aggressive osseous abnormality. Other: No significant ventral hernia. IMPRESSION: Severe hepatic steatosis, with a macro lobulated liver contour. Findings suggest THAKKAR-cirrhosis. Cholelithiasis without evidence of acute cholecystitis. 2 mm cystic lesion in the pancreatic tail, without connection to the pancreatic duct. Findings probab ly represent cyst or sidebranch IPMN. Two-year follow-up with MRI should be considered per consensus guidelines. Reviewed by: Kishan Boswell MD on 02/17/2024 6:12 PM PDT Approved by: Kishan Boswell MD on 02/17/2024 6:12 PM PDT Station ID: [id number]
[2024-02-17] MEDS: PANTOPRAZOLE 40 MG VIAL IVP STA (19:25)
[2024-02-17] MEDS: oxyCODONE/ACET 5/325 Prepack 4 PO STA (19:25)
[2024-02-17] MEDS: ONDANSETRON ODT 4 MG Prepack 2 TL PRN (19:25)
[2024-02-17] MEDS: MAG HYDROX/AL HYDROX/SIMETH 30 ML UDC PO STA (19:26)
[2024-02-17] MEDS: HYDROmorphone 0.5 MG/0.5 ML SYRINGE IVP STA (19:26)
[2024-02-17 19:44] VITALS: BP 160/88; O2SAT 96
== END 2024-02-17 19:39 | disposition home or self-care (01) ==
LOC: ED 11:57
DX: K25.9 Gastric ulcer, unspecified as acute or chronic, without hemorrhage or perforation (principal); R10.11 Right upper quadrant pain; R74.8 Abnormal levels of other serum enzymes; R63.4 Abnormal weight loss; R11.2 Nausea with vomiting, unspecified; Z87.442 Personal history of urinary calculi
CPT/HCPCS: 36415; 74177; 74181; 80053; 81001; 83690; 85025; 87086; 96374; 96375; 96376; 99284; A9270; J1170; Q9967; 81003

== ENCOUNTER 2025-04-03 08:04 | Inpatient (IN) ==
[2025-04-03 08:31] LABS: HCT - HEMATOCRIT 41.0 % (37.0-47.0); HGB - HEMOGLOBIN 13.4 g/dL (12.0-16.0); MEAN PLATELET VOLUME 10.1 fL (7.9-10.8); NRBC ABSOLUTE COUNT (AUTO) 0.00 x10^3/uL; NUCLEATED RED BLOOD CELLS AUTO 0.0 /100WBC; PLT - PLATELET COUNT 372 10^3/uL (130-450); RED CELL DISTRIBUTION WIDTH 12.6 % (12.0-15.0)
--- OUTSIDE RECORDS SUMMARY | 2025-04-03 08:35 | EXTERNAL MEDICAL SUMMARY RPT | Continuity of Care Document ---
Author Organization [facility] Address [address] [place] [id number] Phone Problems date description facility 2025-03-01 10:05 Nausea with vomiting, unspecifi ed [facility] 2025-03-01 13:23 Nausea with vomiting, unspecifi ed [facility] 2025-03-01 13:24 Nausea with vomiting, unspecifi ed [facility] 2025-03-21 10:42 Radiculopathy, lumbar region [facility] 2025-03-21 13:42 Radiculopathy, lumbar region [facility] 2025-03-22 00:03 Radiculopathy, lumbar region [facility] 2025-03-26 07:55 Radiculopathy, lumbar region [facility] Results/Labs test date facility value unit notes Result panel 1 NUCLEATED RED BLOOD CELLS AUTO 2025-04-02 15:57 [facility] 0.0 /100wbc (missing) NRBC ABSOLUTE COUNT (AUTO) 2025-04-02 15:57 [facility] 0.00 x10 3/ul (missing) BASOPHILS # (AUTO) 2025-04-02 15:57 [facility] 0.1 10 3/ul (missing) EOSINOPHILS # (AUTO) 2025-04-02 15:57 [facility] 0.1 10 3/ul (missing) CREATININE 2025-04-02 15:57 [facility] 0.5 mg/dl As of January 2023 testing method has changed, this may include reference ranges. BILIRUBIN,TOTAL 2025-04-02 15:57 [facility] 0.6 mg /dl As of January 2023 testing method has changed, this may include reference ranges. MONOCYTES # (AUTO) 2025-04-02 15:57 [facility] 0.9 10 3/ul (missing) ALBUMIN/GLOBULIN RATIO 2025-04-02 15:57 [facility] 1.2 (missing) (missing) INR 2025-04-02 15:57 [facility] 1.2 (missing ) Oral Anticoagulant Indication INR range Venous Thrombosis, P.E. 2.0 - 3.0 Mechanical Valve 2.5 - 3.5 LYMPHOCYTES # (AUTO) 2025-04-02 15:57 [facility] 1.5 10 3/ul (missing) MEAN PLATELET VOLUME 2025-04-02 15:57 [facility] 10.1 fl (missing) MEAN CORPUSCULAR VOLUME 2025-04-02 15:57 [facility] 103.5 fl (missing) CHLORIDE 2025-04-02 15:57 [facility] 104 mmol/l As of January 2023 testing method has changed, this may include reference ranges. GLUCOSE 2025-04-02 15:57 [facility] 115 mg/dl As of January 2023 testing method has changed, this may include reference ranges. RED CELL DISTRIBUTION WIDTH 2025-04-02 15:57 [facility] 12.5 % (mi ssing) GFR - MDRD 2025-04-02 15:57 [facility] 124 (obinna g) Social History date description facility
[2025-04-03 08:45] LABS: ALT ALANINE AMINOTRANSFERASE 31 IU/L (10-60); AST ASPARTATE AMINOTRANSFERASE 20 IU/L (10-42); BUN - BLOOD UREA NITROGEN 9 mg/dL (6-20); CARBON DIOXIDE - CO2 26 mmol/L (21-32); CREATININE 0.7 mg/dL (0.6-1.3); ETOH - ETHANOL < 10.0 mg/dL; GFR - MDRD 84 (>89)
[2025-04-03] MEDS: THIAMINE INJ 100 MG, MAGNESIUM SULFATE 2 GM, MULTIVITAMIN 10 ML, FOLIC ACID INJ 1 MG in... IV STA (08:45)
--- NOTE | 2025-04-03 08:59 | ED Physician Documentation ---
History of Present Illness Stated complaint Stated Complaint: POSSIBLE STROKE Chief complaint Chief Complaint: General History obtained from History obtained from: Patient Additonal information Additional information: The patient comes to the emergency department with chief complaint of left hand weakness. She has also had bilateral lower extremity weakness for the last several days and has been shuffling, she states. She was seen here yesterday and had extensive workup including CT CT angiograms of the head and neck, and workup was negative other than an elevated alcohol level at 158. The patient states that she used to drink quite a bit but was sober for 5 months until a few days ago. She has been drinking varying amounts over the last couple of days. She states she has not had anything to drink since being seen yesterday. The patient states that she has never had any weakness or issues with sensory deficits previously. Her symptoms started 4 days ago and her family does not think it is just the alcohol. The patient has no neurologic diagnoses previously. 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 She denies any numbness or tingling. She does not feel that her lower extremity weakness is confined to her left side but feels it's about equal bilaterally. No expressive aphasia. No visual changes. No other complaints at this time. Meds/Allgy Home Medications Ambulatory Orders Medication Instructions Recorded Confirmed amlodipine 5 mg tablet 5 mg PO DAILY 03/21/2504/03 losartan 100 mg tablet 100 mg PO DAILY 03/21/25 Allergies Allergies Allergy/AdvReac Type Severity Reaction Status Date / Time No Known Drug Allergies Allergy Verified 04/03/25 08:40 [facility] Active Problems All Active Problems (Updated 04/03/25 @ 15:55 by Renetta Blankenship MD) Alcohol use (Acute) Fever of unknown origin (Acute) Lower back pain (Chronic) Wernicke's disease (Acute) Weakness (Acute) Alcohol intoxication delirium (Acute) Acquired spondylolisthesis of lumbosacral region (Acute) Right lumbar radiculopathy (Acute) Hypertension (Acute) Elevated blood pressure reading in office with diagnosis of hypertension (Acute) Diarrhea (Acute) Gastroenteritis (Acute) Elevated blood pressure reading (Acute) BPPV (benign paroxysmal positional vertigo) (Acute) Abscess (Acute) Vertigo (Acute ~03/01/25) Social History Social History Smoking Status: Former smoker If you are a former smoker, when did you quit? (Date/Year): 2009 Number of Years Smoked: 38 How many cigarettes a day do you smoke? (20 cigarettes=1 Pk): 20 Do you dip or chew tobacco?: No Do you vape?: No Level: Independent Do you feel safe in your home environment?: Yes History of physical, verbal, emotional, or financial abuse?: No Frequency: Occasional POLST Patient has POLST: No Exam Exam Vital Signs: Vital Signs x48h Temp Pulse Resp BP Pulse Ox 04/03/25 13:23 94 16 121/74 94 04/03/25 13:22 93 04/03/25 12:26 130/85 94 04/03/25 10:16 122/64 04/03/25 10:16 84 122/64 94 04/03/25 09:46 91 20 130/90 92 04/03/25 09:45 130/90 04/03/25 09:45 130/90 84 L 04/03/25 09:44 90 L 04/03/25 08:13 36.5 C 98 18 131/91 H 95 Constitutional normal general appearance and no apparent distress HENMT normocephalic, head/scalp atraumatic, external nose normal and oral mucous membranes normal Eyes EOMs intact bilaterally Neck/C-Spine visual inspection normal and supple Respiratory breath sounds equal bilaterally, normal respiratory effort and clear to au scultation bilaterally Cardiovascular normal heart rate noted, regular rhythm noted and no edema Gastrointestinal abdomen normal to inspection, abdomen soft to palpation, nontender to palpation and nondistended Genitourinary no CVA tenderness Extremities normal to inspection Neurology Alert, Clear speech, Customs Examiner strength equal, mildly decreased strength of the remainder of left upper extremity compared to right. 5+ throughout bilateral upper extremities, however. Lower extremity strength is 5+ and equal. No facial weakness or asymmetry. No aphasia. Psychiatry mental status grossly normal Skin skin color normal Results Vitals Vitals: Vital Signs - 24 hr 04/02/25 16:05 04/02/25 17:18 04/03/25 08:13 Temperature 36.5 C Temperature Source Temporal Artery Scan Pulse Rate 98 Respiratory Rate 18 Blood Pressure 131/91 H O2 Saturation 95 O2 Source Room air Room air Pain Intensity 0 0 04/03/25 09:44 04/03/25 09:45 04/03/25 09:45 Temperature Temperature Source Pulse Rate Respiratory Rate Blood Pressure 130/90 130/90 O2 Saturation 90 L 84 L O2 Source Pain Intensity 04/03/25 09:46 04/03/25 10:16 04/03/25 10:16 Temperature Temperature Source Pulse Rate 91 84 Respiratory Rate 20 Blood Pressure 130/90 122/64 122/64 O2 Saturation 92 94 O2 Source Room air Pain Intensity 04/03/25 12:26 04/03/25 13:22 04/03/25 13:23 Temperature Temperature Source Pulse Rate 94 Respiratory Rate 16 Blood Pressure 130/85 121/74 O2 Saturation 94 93 94 O2 Source Room air Pain Intensity 0 Oxygen O2 Source Room air Labs Labs: Laboratory Tests 04/03/25 08:25 WBC 9.6 RBC 3.94 L Hgb 13.4 Hct 41.0 MCV 104.1 H MCH 34.0 H MCHC 32.7 RDW 12.6 Plt Count 372 MPV 10.1 Neut # (Auto) 7.1 H Lymph # (Auto) 1.3 L [place] # (Auto) 0.9 Eos # (Auto) 0.2 Baso # (Auto) 0.1 Absolute Nucleated RBC 0.00 Nucleated RBC % 0.0 Sodium 135 Potassium 3.8 Chloride 100 L Carbon Dioxide 26 Anion Gap 9.0 BUN 9 Creatinine 0.7 Estimated GFR (MDRD) 84 L Glucose 121 H Calcium 10.2 Total Bilirubin 1.2 H AST 20 ALT 31 Alkaline Phosphatase 162 H Total Protein 6.9 Albumin 3.8 Globulin 3.1 Albumin/Globulin Ratio 1.2 Lipase 27 Ethyl Alcohol < 10.0 PD Medical Decision Making ED course Complexity details: reviewed old records, reviewed results, re-evaluated patient, considered differential, d/w patient and d/w family ED course: The patient had slight weakness of the left upper extremity compared to the right but otherwise, neurologic exam was unremarkable. The patient was given a banana bag in the emergency department and worked up with MRI. The patient's MRI was negative, and labs were also unremarkable. I had a long discussion with the patient and son and that his son expressed concerns that the patient is also having word finding difficulty and confusion, which neither the patient nor the son had mentioned before. The son did not feel comfortable taking the patient home. I discussed the case with Dr. Gill and later, Dr. Rizo, both neurologist at [facility], and they recommended high-dose IV thiamine 3 times daily for 3 days. The high dose recommendation was 200 to 500 mg per dose. Following this, the patient can be put on oral supplements as well. I discussed the case with Dr. Galloway who is on-call for our hospitalist service and she did accept the patient for admission. Discharge Plan Discharge Patient Disposition: 66 [facility] DC/Xfer Condition: Serious Clinical Impression: Weakness, Wernicke's disease Interventions: ED Admission Assessment Last Done: 04/03/25 14:40 Vitals documented within 30 minutes of discharge?: Yes
--- NOTE | 2025-04-03 11:30 | MRI Report ---
PROCEDURE: MRI Brain WO INDICATIONS: slurred speech, ataxia TECHNIQUE: Multisequence MRI of the brain was performed without intravenous contrast. COMPARISON: Head CT from yesterday, brain MRI dated 06/02/2016 FINDINGS: Image quality: Diagnostic. CSF Spaces: Basal cisterns are patent. No extra-axial fluid collections. Ventricles are normal in size and shape. Brain: No intracranial mass effect or hemorrhage. [place]/white matter interface is normal. Brainstem appears normal. Age-related volume loss and mild, age- appropriate small vessel ischemic change. Diffusion-weighted images demonstrate no acute ischemic insult. No chronic ischemic insults. Normal intravascular flow voids are present. Skull and face: Calvarium has normal marrow signal. Orbits appear normal. Sinuses: Sinuses and mastoids are clear. IMPRESSION: No acute intracranial process. Age-related volume loss and mild, age-appropriate small vessel ischemic change. Reviewed by: Neville Shah MD on 04/03/2025 11:26 AM PDT Approved by: Neville Shah MD on 04/03/2025 11:26 AM PDT Station ID: [id number]
[2025-04-03] MEDS ORDERED: SODIUM CHLORIDE 0.9% IV STA (13:28)
[2025-04-03] MEDS ORDERED: THIAMINE IV STA (13:28)
[2025-04-03] MEDS ORDERED: THIAMINE 100 MG/1 ML 2 ML MDV IVP SCH (14:00)
--- OUTSIDE RECORDS SUMMARY | 2025-04-03 14:30 | EXTERNAL MEDICAL SUMMARY RPT | Continuity of Care Document ---
Author Organization [facility] Address [address] [place] [id number] Phone Problems date description facility 2025-03-01 10:05 [...] Health 1.2 (missing) (missing) INR 2025-04-02 15:57 [facility] 1[facility]2 (missing ) Oral Anticoagulant Indication INR range Venous Thrombosis, P.E. 2.0 - 3.0 Mechanical Valve 2.5 - 3.5 LYMPHOCYTES # (AUTO) 2025-04-02 15:57 [facility] 1.5 10 3/ul (missing) MEAN PLATELET VOLUME 2025-04-02 15:57 [facility] 10.1 fl (missing) MEAN CORPUSCULAR VOLUME 2025-04-02 15:57 [facility] 103.5 fl (missing) CHLORIDE 2025-04-02 15:57 [facility] 104 mmol/l As of January 2023 testing method has changed, this may include reference ranges. GLUCOSE 2025-04-02 15:57 [facility] 115 mg/dl As of January 2023 testing method has changed, this may include reference ranges. RED CELL DISTRIBUTION WIDTH 2025-04-02 15:57 [facility] 12.5 % (mi ssing) GFR - MDRD 2025-04-02 15:57 [facility] 124 (obinna g) Social History date description facility
[2025-04-03] MEDS ORDERED: ONDANSETRON ODT 4 MG TABLET TL PRN (14:48)
[2025-04-03] MEDS ORDERED: SODIUM CHLORIDE FLUSH 0.9% 10 ML SYRINGE IVP PRN (14:48)
[2025-04-03] MEDS: ACETAMINOPHEN 325 MG TABLET PO PRN (15:15)
--- NOTE | 2025-04-03 15:37 | HISTORY & PHYSICAL EXAMINATION ---
Chief Complaint Chief Complaint Chief Complaint: Dysarthria, gait disturbance, BLE weakness History of Present Illness Admitted From Admitted From:: Emergency Room History Obtained From History obtained from: Patient, Son History of Present Illness HPI Comment/Other: Estrellita Tolbert is a 65 y/o female with PMH of ETOH use and HTN who presents with 3 days of subacute dysarthria, gait disturbance, and BLE weakness. The patient's son, Mariano, is present at bedside and assists in contributing history. Ms. Gtz's clinical picture begins on Mar 31 when her son noticed her being "totally out of it" with slurred and incoherent speech, episodes of mumbling, and gait instability. He was called over concerns of her being driving under the influence, however per Mariano she underwent two breathalyzer tests which were negative. These symptoms continued until Apr 02 at which time Mariano presented to [facility] ED with the patient. According to records, a CTA H/N were performed (negative) and BAL was positive at 158. Due to her intoxication it was difficult to pinpoint potential causes, thus they were instructed to return the next day if her symptoms persisted after she was not intoxicated--they thus presented with persistent symptoms today. The patient reports that she is aware that she is having episodes of confusion. She states at times, she cannot understand people speaking to her, and that she is unable to verbalize the correct words to communicate. She also endorses instability during ambulation and shuffling gait with intermittent BLE. She denies headache, dizziness, vertigo, or recent trauma. She did have a fall in the ED while attempting to use the bedside commode today, but has not had any history of falls. She states that she has noticed urinary urgency as well, without any urine abnormalities or dysuria. These symptoms have been present since Tuesday. Of note, she has an extensive history of ETOH use drinking up to a fifth of vodka daily. She attempted strict cessation 5 months ago and was successful until yesterday, at which time she drank an unknown amount of vodka. Denies recreational drug use. Meds/Allgy Home Medications Ambulatory Orders Medication Instructions Recorded Confirmed amlodipine 5 mg tablet 5 mg PO DAILY 03/21/2504/03 losartan 100 mg tablet 100 mg PO DAILY 03/21/25 Allergies Allergies Allergy/AdvReac Type Severity Reaction Status Date / Time No Known Drug Allergies Allergy Verified 04/03/25 08:40 PFSH Active Problems All Active Problems (Updated 04/03/25 @ 15:55 by Renetta Blankenship MD) Alcohol use (Acute) Fever of unknown origin (Acute) Lower back pain (Chronic) Wernicke's disease (Acute) Weakness (Acute) Alcohol intoxication delirium (Acute) Acquired spondylolisthesis of lumbosacral region (Acute) Right lumbar radiculopathy (Acute) Hypertension (Acute) Elevated blood pressure reading in office with diagnosis of hypertension (Acute) Diarrhea (Acute) Gastroenteritis (Acute) Elevated blood pressure reading (Acute) BPPV (benign paroxysmal positional vertigo) (Acute) Abscess (Acute) Vertigo (Acute ~03/01/25) Social History Social History Smoking Status: Former smoker If you are a former smoker, when did you quit? (Date/Year): 2009 Number of Years Smoked: 38 How many cigarettes a day do you smoke? (20 cigarettes=1 Pk): 20 Do you dip or chew tobacco?: No Do you vape?: No Level: Independent Do you feel safe in your home environment?: Yes History of physical, verbal, emotional, or financial abuse?: No Frequency: Occasional POLST Patient has POLST: No Review of Systems Constitutional Reports: Fever (Unmeasured, states she has felt feverish.), Chills and Weakness (BLE); Denies: Changes in appetite or eating habits or Weight loss Eyes Reports: Vision loss (No acute changes to vision, states she likely needs corrective lenses.); Denies: Pain, Blurry vision, Floaters, Change in vision, Diplopia or Corrective lenses Ears, nose, mouth, and throat Reports: Hearing loss (Reports hard of hearing); Denies: Change in hearing, Nasal discharge, Nasal congestion, Vertigo or Neck pain Cardiovascular Denies: Irregular heart rate, chest pain, palpitations, edema, swelling of feet/ankles, Syncope, lightheadedness, shortness of breath with exertion or shortness of breath when lying down Respiratory Reports: Cough (Dry cough); Denies: Shortness of breath, Sputum production, Wheezing, SOB at rest or SOB with exertion Gastrointestinal Reports: Nausea, Heartburn (Takes Prilosec as needed, not regularly, last was one week ago) and Blood in stool (Reports hemorrhoids that causes bright red blood in stool); Denies: Abdominal pain, Vomiting, Diarrhea, Constipation or Change in bowel habits Genitourinary Reports: Urinary urgency and Urinary incontinence; Denies: Painful urination, Urinary frequency, Blood in urine, Difficulty voiding or Flank pain Musculoskeletal Reports: Back pain (Intermittent, chronic); Denies: Neck pain Integumentary/Breast Reports: Dryness (Psoriasis patch on anterior RLE); Denies: Rash, Itching or Redness Neurological Reports: Weakness in extremities, Abnormal gait, Confusion, Slurred speech and Difficulty communicating thoughts; Denies: Headache, Numbness in extremities, Lack of coordination, Dizziness, Vertigo, Behavioral changes, Seizure-like activity or Involuntary movements Psychiatric Denies: Depression, Anxiety, Visual hallucinations, Auditory hallucinations or Tactile hallucinations Endocrine Denies: Excessive urination, Excessive thirst, Cold intolerance, Excessive sweating or Heat intolerance Hematologic/Lymphatic Denies: Easy bruising or Easy bleeding Allergic/Immunologic Denies: Wheezing Prior Level of Functionality: Independent, does not require ambulatory assistive device. Exam Exam Vital Signs: Vital Signs x48h Temp Pulse Pulse Resp BP BP Pulse Ox 04/03/25 14:49 36.7 C 98 16 129/79 93 04/03/25 13:23 94 16 121/74 94 04/03/25 13:22 93 04/03/25 12:26 130/85 94 04/03/25 10:16 122/64 04/03/25 10:16 84 122/64 94 04/03/25 09:46 91 20 130/90 92 04/03/25 09:45 130/90 04/03/25 09:45 130/90 84 L 04/03/25 09:44 90 L 04/03/25 08:13 36.5 C 98 18 131/91 H 95 Constitutional no apparent distress and alert HENMT normocephalic, head/scalp atraumatic, external ears normal and oral mucous membranes normal Eyes PERRL, EOMs intact bilaterally, conjunctivae normal, no scleral icterus, normal visual sauer by confrontation, alignment normal and nystagmus noted (horizontal) and (bidirectional) Neck/C-Spine visual inspection normal, trachea midline and no meningeal signs Lymph no lymphadenopathy noted Chest inspection of chest normal Respiratory breath sounds equal bilaterally, normal respiratory effort, clear to auscultation bilaterally, no wheezes, no rales, no retractions and no use of accessory muscles Cardiovascular normal heart rate noted, regular rhythm noted, no murmur, no JVD, peripheral pulses 2+ throughout, no bruits noted, no additional abnormal heart sounds and no edema Gastrointestinal abdomen normal to inspection, abdomen soft to palpation, nontender to palpation, nondistended and normoactive bowel sounds Genitourinary no CVA tenderness Back/Pelvis spine normal to inspection Extremities normal to inspection, normal to palpation, no tenderness and no deformity Neurology focal motor deficit noted hypotonic: left lower extremity (4/5), no sensory deficits noted, speech normal and no fasciculations noted Psychiatry mental status grossly normal, oriented x3, thought process normal, cooperative, affect normal and psychomotor activity normal When asked what year, patient stated 1974, then 2004, then 2024. Skin skin color normal and skin turgor normal Image Body (4 view): 2 1. Psoriasis plaque, clean, dry, intact Conclusion/Plan Problem List (1) Wernicke's disease: Plan: Patient presents with chief complaints of dysarthria, gait instability, aphasia. Differential diagnoses include CVA, seizures, hypoglycemia, infection, metabolic encephalopathy, medication, electrolyte disturbance, and Wernicke's encephalopathy. CTA H/N and MRI were negative for acute intracranial process. WBC is normal, however patient reports fevers/chills. Na, K, Ca are WNL. BAL was elevated 04/02; 04/03 it is <10. I am less concerned for seizures given presentation and consistency of symptoms. She is alert and oriented on my assessment, and she has not had any medication changes. - Patient with nystagmus, expressive aphasia/dysarthria, as well as dysmetria and altered gait (shuffling) on exam. Concern for Wernickes. ER physician spoke with Dr. Gill, neurology. Reccomends thiamine 500mg IV TID for 3 days. - Thiamine level pending. - [facility] protocol ordered for close monitoring of EtOH withdrawal. (2) Lower back pain: Plan: - Patient with acute on chronic lower back pain, worse over the last few days. Also endorses new urinary incontinence as well as lower extremity weakness, R>L. - MRI lumbar spine ordered to assess for cord abnormalities. Qualifiers: Back pain laterality: midline Chronicity: unspecified Sciatica presence: without sciatica Qualified Code(s): M54.50 - Low back pain, unspecified (3) Fever of unknown origin: Plan: - Patient endorses fevers and cough over the last 1-2 days. Urinary incontinence, and urgency also noted. Chest x-ray, RVP, UA ordered, pending. Continue monitor off antibiotics at this time. (4) Alcohol use: Plan: Patient denies prior withdrawal symptoms from ETOH. Given chronicity of previous use and unclear of how much patient consumed over the past few days, would be prudent to continue monitoring. - Continue to monitor for withdrawal with CIWA protocol. - Continue multivitamin and folic acid supplementation. - Social work consult for resources. (5) Hypertension: Plan: - Continue amlodipine and losartan. Qualifiers: Hypertension type: unspecified Qualified Code(s): I10 - Essential (primary) hypertension Plan Lines/Drains/Airways: PIV Fluids/Electrolytes/Nutrition: Regular Diet DVT Prophylaxis: Enoxaparin 40mg SQ Barriers to Discharge: Thiamine supplementation, CIWA monitoring Lab Results 04/03/25 08:25 04/03/25 08:25 Core Measures Anticipated LOS I expect patient to be DC'd or transferred within 96 hours.: Yes DVT/VTE - Prophylaxis VTE/DVT Device ordered at admit?: Yes
--- NOTE | 2025-04-03 15:53 | PHARMACY PROGRESS NOTE ---
Best Possible Medication History Admit Date and Time: 04/03/25 1325 Home Medications Medication Instructions Recorded Confirmed Type amlodipine 5 mg tablet 5 mg PO DAILY 03/21/2504/03 History losartan 100 mg tablet 100 mg PO DAILY 03/21/25 History Processed by: Pharmacy (Medication reconciliation completed by Fitting SupervisorJacqueline) Medications reviewed in ED?: No Medication History completed: Yes Patient Interview: Completed Secondary Source(s): Insurance records [facility] Statement: As the person ultimately responsible for medication therapy, providers are able to order a medication from an existing home medication list in [facility] via the "Reconcile Routine" prior to Confirmation of that medication by patient support representative. Such practice is discouraged except when the physician, in their clinical judgment, deems that a medical need exists for a medication without regard to previous use.
[2025-04-03] MEDS: THIAMINE 100 MG/1 ML 2 ML MDV IVP SCH (15:58)
[2025-04-03] MEDS: SODIUM CHLORIDE FLUSH 0.9% 10 ML SYRINGE IVP SCH (17:11)
[2025-04-03 17:14] LABS: B. PARAPERTUSSIS- RESP PCR PAN NOT DETECTED; B. PERTUSSIS- RESP PCR PANEL NOT DETECTED; C. PNEUMONIAE- RESP PCR PANEL NOT DETECTED; CORONAVIRUS 229E-RESP PCR NOT DETECTED; CORONAVIRUS HKU1-RESP PCR NOT DETECTED; CORONAVIRUS NL63-RESP PCR NOT DETECTED; CORONAVIRUS OC43-RESP PCR NOT DETECTED; HUMAN METAPNEUMOVIRUS NOT DETECTED; INFLUENZA A- RESP PCR PANEL NOT DETECTED; INFLUENZA B - RESP PCR PANEL NOT DETECTED; M. PNEUMONIAE- RESP PCR PANEL NOT DETECTED; PARAINFLUENZA VIRUS 1 NOT DETECTED; PARAINFLUENZA VIRUS 2 NOT DETECTED; PARAINFLUENZA VIRUS 4 NOT DETECTED; RHINOVIRUS/ENTEROVIRUS NOT DETECTED; RSV- RESP PCR PANEL NOT DETECTED; SARS-CoV-2 -RESP PCR PANEL NOT DETECTED
--- NOTE | 2025-04-03 17:18 | XRAY Report ---
EXAM: XR Chest 1V DATE: 04/03/2025 3:51 PM PDT INDICATION: 65 years Female with MADHURI TECHNIQUE: Single portable frontal view of the chest was obtained. LIMITATION: None. COMPARISON: 09/18/2019 FINDINGS: Lung parenchyma: No definite consolidation, interstitial abnormalities or focal lesion seen. Pleural spaces: No significant pleural effusion or definite focal lesion seen. Cardiomediastinum and chris: The cardiac silhouette and mediastinal contours are unremarkable. Osseous structures: No suspicious or acute focal lesion seen. Chest wall: No significant focal lesion seen. IMPRESSION: No signs of active cardiopulmonary disease. Reviewed by: Elton Gregorio MD on 04/03/2025 5:15 PM PDT Approved by: Elton Gregorio MD on 04/03/2025 5:15 PM PDT Station ID: [id number]
[2025-04-03] MEDS: KETOROLAC 15 MG/ML VIAL IVP STA (19:13)
[2025-04-03] MEDS: FAMOTIDINE 20 MG TABLET PO SCH (22:18)
[2025-04-03] MEDS: ACETAMINOPHEN 500 MG TABLET PO SCH (22:18)
[2025-04-04 05:16] LABS: GLUCOSE, URINE (UA) NEGATIVE (NEGATIVE); KETONES,URINE (UA) NEGATIVE (NEGATIVE); OCCULT BLOOD,URINE TRACE (NEGATIVE); SQUAMOUS EPITHELIAL CELL,UR MOD Squamous (<= Few)
[2025-04-04 05:17] LABS: CASTS, URINE 0-2 Course Granular /LPF
[2025-04-04 05:47] LABS: HCT - HEMATOCRIT 37.2 % (37.0-47.0); HGB - HEMOGLOBIN 12.2 g/dL (12.0-16.0); MEAN PLATELET VOLUME 10.3 fL (7.9-10.8); PLT - PLATELET COUNT 278.0 10^3/uL (130-450); RED CELL DISTRIBUTION WIDTH 12.7 % (12.0-15.0)
[2025-04-04 06:01] LABS: BUN - BLOOD UREA NITROGEN 11.0 mg/dL (6-20); CARBON DIOXIDE - CO2 24.0 mmol/L (21-32); CREATININE 0.6 mg/dL (0.6-1.3); GFR - MDRD 101.0 (>89)
--- NOTE | 2025-04-04 08:16 | PROVIDER PROGRESS NOTE ---
Subjective Prog Note Date Prog Note Date: 04/04/25 Prog Note Time: 12:49 Subjective Pt reports feeling: Improved Subjective: Patient reports her headache and lower back pain is improved, reports ambulating to the chair without difficulty and ambulating around the hallway as well as taking a few steps. Continues to report intermittent aphasia and mild gait instability, but endorses improvement. Denies dizziness or vertigo. Current Medications Current Medications Current Medications: Current Medications Generic Name Dose Route Start Last Admin Trade Name Freq PRN Reason Stop Dose Admin Acetaminophen 1,000 mg 04/03/25 21:00 04/03/25 22:18 Acetaminophen 500 Mg Tablet PO 1,000 mg BID MARKELL Administration Amlodipine Besylate 5 mg 04/04/25 09:00 Amlodipine 5 Mg Tablet PO DAILY MARKELL Enoxaparin Sodium 40 mg 04/04/25 09:00 Enoxaparin 40 Mg/0.4 Ml Syringe SUBQ DAILY MARKELL Famotidine 20 mg 04/03/25 21:00 04/03/25 22:18 Famotidine 20 Mg Tablet PO 20 mg BID MARKELL Administration Losartan Potassium 100 mg 04/04/25 09:00 Losartan 50 Mg Tablet PO DAILY MARKELL Ondansetron HCl 4 mg 04/03/25 14:48 Ondansetron Odt 4 Mg Tablet TL Q6HR PRN Nausea / Vomiting Ondansetron HCl 4 mg 04/03/25 14:48 Ondansetron 4 Mg/2 Ml Vial IVP Q6HR PRN Nausea / Vomiting Sodium Chloride 10 ml 04/03/25 14:48 Sodium Chloride Flush 0.9% 10 Ml Syringe IVP PRN PRN NEEDED PER PROVIDER ORDERS Sodium Chloride 10 ml 04/03/25 17:00 04/04/25 00:53 Sodium Chloride Flush 0.9% 10 Ml Syringe IVP 10 ml 0100,0900,1700 MARKELL Administration Thiamine HCl 500 mg 04/03/25 14:00 04/04/25 05:24 Thiamine 100 Mg/1 Ml 2 Ml Mdv IVP 04/05/25 22:01 500 mg TID MARKELL Administration Objective Vital Signs/Intake & Output Reviewed Vital Signs: Yes Vital Signs: Vital Signs x48h Temp Pulse Resp BP Pulse Ox 04/04/25 03:16 36.8 C 72 18 111/58 L 95 Intake & Output: Intake & Output 09/2204/02/25 04/03/25 04/04/25 23:59 23:59 23:59 23:59 Intake Total 1551.2 / 1551.2 Balance 1551.2 / 1551.2 Weight (kg) 81.8 kg Objective General Appearance: positive No acute distress and Alert Eyes Bilateral: positive Normal inspection, PERRL, No lid inflammation and Conjunctivae nml; negative EOMI (Horizontal nystagmus to the right) Eyes: OU: Abnormal EOM (Horizontal nystagmus to the right) ENT: positive ENT inspection nml Neck: positive Nml inspection, No JVD and Trachea midline Respiratory: positive No respiratory distress and Breath sounds nml Cardiovascular: positive Regular rate & rhythm and No murmur Peripheral Pulses: 2+: Radial (R), 2+: Radial (L), 2+: Dorsalis pedis (R), 2+: Dorsalis pedis (L), 2+: Posterior tibialis (R) and 2+: Posterior tibialis (L) Abdomen: positive Non-tender, Nml bowel sounds and No distention Skin: positive Color nml, Warm and Dry Extremities: positive Non-tender, Nml appearance and No pedal edema Neurologic/Psychiatric: positive Oriented x3, Mood/affect nml and Disoriented to place; negative Motor nml (LUE weakness 4/5 and dysmetria; rapid alternating movements intact) Lab Results 04/04/25 05:22 04/04/25 05:22 Other Labs: Lab Results x24hrs 04/04/25 04/04/25 04/03/25 Range/Units 05:22 05:00 15:45 WBC 6.4 (4.8-10.8) x10^3/uL RBC 3.56 L (4.20-5.40) 10^6/uL Hgb 12.2 (12.0-16.0) g/dL Hct 37.2 (37.0-47.0) % MCV 104.5 H (81.0-99.0) fL MCH 34.3 H (27.0-31.0) pg MCHC 32.8 (32.0-36.0) g/dL RDW 12.7 (12.0-15.0) % Plt Count 278 (130-450) 10^3/uL MPV 10.3 (7.9-10.8) fL Neut # (Auto) (1.5-6.6) 10^3/uL Lymph # (Auto) (1.5-3.5) 10^3/uL Redwood # (Auto) (0.0-1.0) 10^3/uL Eos # (Auto) (0.0-0.7) 10^3/uL Baso # (Auto) (0.0-0.1) 10^3/uL Absolute Nucleated RBC x10^3/uL Nucleated RBC % /100WBC Sodium 138 (135-145) mmol/L Potassium 3.5 (3.5-4.5) mmol/L Chloride 107 (101-111) mmol/L Carbon Dioxide 24 (21-32) mmol/L Anion Gap 7.0 (6-13) BUN 11 (6-20) mg/dL Creatinine 0.6 (0.6-1.3) mg/dL Estimated GFR (MDRD) 101 (>89) Glucose 117 H (74-104) mg/dL Calcium 9.0 (8.5-10.3) mg/dL Magnesium 2.2 (1.7-2.3) mg/dL Total Bilirubin (0.2-1.0) mg/dL AST (10-42) IU/L ALT (10-60) IU/L Alkaline Phosphatase (42-121) IU/L Total Protein (6.4-8.9) g/dL Albumin (3.2-5.5) g/dL Globulin (2.1-4.2) g/dL Albumin/Globulin Ratio (1.0-2.2) Lipase (11-82) U/L Urine Color YELLOW Urine Clarity HAZY (CLEAR) Urine pH 6.0 (5.0-7.5) PH Ur Specific [place] 1.015 (1.002-1.030) Urine Protein TRACE (NEGATIVE) mg/dL Urine Glucose (UA) NEGATIVE (NEGATIVE) mg/dL Urine Ketones NEGATIVE (NEGATIVE) mg/dL Urine Occult Blood TRACE (NEGATIVE) Urine Nitrite POSITIVE H (NEGATIVE) Urine Bilirubin NEGATIVE (NEGATIVE) Urine Urobilinogen 0.2 (NORMAL) (NORMAL) E.U./dL Ur Leukocyte Esterase LARGE H (NEGATIVE) Urine RBC 0-5 (0-5) /HPF Urine WBC 11-25 H (0-5) /HPF Ur Squamous Epith Cells MOD Squamous H (<= Few) Urine Bacteria Many H (None Seen) /HPF Urine Casts 0-2 Course Granular /LPF Nasal Adenovirus (PCR) NOT DETECTED Nasal B. parapertussis DNA (PCR) NOT DETECTED Nasal Coronavir 229E PCR NOT DETECTED Nasal Coronavir HKU1 PCR NOT DETECTED Nasal Coronavir NL63 PCR NOT DETECTED Nasal Coronavir OC43 PCR NOT DETECTED Nasal Enterovir/Rhinovir PCR NOT DETECTED Nasal Influenza B PCR NOT DETECTED Nasal Influenza A PCR NOT DETECTED Nasal Parainfluen 1 PCR NOT DETECTED Nasal Parainfluen 2 PCR NOT DETECTED Nasal Parainfluen 3 PCR NOT DETECTED Nasal Parainfluen 4 PCR NOT DETECTED Nasal RSV (PCR) NOT DETECTED Nasal B.pertussis DNA PCR NOT DETECTED Nasal C.pneumoniae (PCR) NOT DETECTED Bean Human Metapneumo PCR NOT DETECTED Nasal M.pneumoniae (PCR) NOT DETECTED Nasal SARS-CoV-2 (PCR) NOT DETECTED Ethyl Alcohol mg/dL 04/03/25 Range/Units 08:25 WBC 9.6 (4.8-10.8) x10^3/uL RBC 3.94 L (4.20-5.40) 10^6/uL Hgb 13.4 (12.0-16.0) g/dL Hct 41.0 (37.0-47.0) % MCV 104.1 H (81.0-99.0) fL MCH 34.0 H (27.0-31.0) pg MCHC 32.7 (32.0-36.0) g/dL RDW 12.6 (12.0-15.0) % Plt Count 372 (130-450) 10^3/uL MPV 10.1 (7.9-10.8) fL Neut # (Auto) 7.1 H (1.5-6.6) 10^3/uL Lymph # (Auto) 1.3 L (1.5-3.5) 10^3/uL Redwood # (Auto) 0.9 (0.0-1.0) 10^3/uL Eos # (Auto) 0.2 (0.0-0.7) 10^3/uL Baso # (Auto) 0.1 (0.0-0.1) 10^3/uL Absolute Nucleated RBC 0.00 x10^3/uL Nucleated RBC % 0.0 /100WBC Sodium 135 (135-145) mmol/L Potassium 3.8 (3.5-4.5) mmol/L Chloride 100 L (101-111) mmol/L Carbon Dioxide 26 (21-32) mmol/L Anion Gap 9.0 (6-13) BUN 9 (6-20) mg/dL Creatinine 0.7 (0.6-1.3) mg/dL Estimated GFR (MDRD) 84 L (>89) Glucose 121 H (74-104) mg/dL Calcium 10.2 (8.5-10.3) mg/dL Magnesium (1.7-2.3) mg/dL Total Bilirubin 1.2 H (0.2-1.0) mg/dL AST 20 (10-42) IU/L ALT 31 (10-60) IU/L Alkaline Phosphatase 162 H (42-121) IU/L Total Protein 6.9 (6.4-8.9) g/dL Albumin 3.8 (3.2-5.5) g/dL Globulin 3.1 (2.1-4.2) g/dL Albumin/Globulin Ratio 1.2 (1.0-2.2) Lipase 27 (11-82) U/L Urine Color Urine Clarity (CLEAR) Urine pH (5.0-7.5) PH Ur Specific [place] (1.002-1.030) Urine Protein (NEGATIVE) mg/dL Urine Glucose (UA) (NEGATIVE) mg/dL Urine Ketones (NEGATIVE) mg/dL Urine Occult Blood (NEGATIVE) Urine Nitrite (NEGATIVE) Urine Bilirubin (NEGATIVE) Urine Urobilinogen (NORMAL) E.U./dL Ur Leukocyte Esterase (NEGATIVE) Urine RBC (0-5) /HPF Urine WBC (0-5) /HPF Ur Squamous Epith Cells (<= Few) Urine Bacteria (None Seen) /HPF Urine Casts /LPF Nasal Adenovirus (PCR) Nasal B. parapertussis DNA (PCR) Nasal Coronavir 229E PCR Nasal Coronavir HKU1 PCR Nasal Coronavir NL63 PCR Nasal Coronavir OC43 PCR Nasal Enterovir/Rhinovir PCR Nasal Influenza B PCR Nasal Influenza A PCR Nasal Parainfluen 1 PCR Nasal Parainfluen 2 PCR Nasal Parainfluen 3 PCR Nasal Parainfluen 4 PCR Nasal RSV (PCR) Nasal B.pertussis DNA PCR Nasal C.pneumoniae (PCR) Bean Human Metapneumo PCR Nasal M.pneumoniae (PCR) Nasal SARS-CoV-2 (PCR) Ethyl Alcohol < 10.0 mg/dL Assessment/Plan Problem List (1) Wernicke's disease: Impression: Although patient reports improvement, she continues to endorse some mild gait instability and expressive aphasia. On physical exam she demonstrates dysmetria in the LUE with 4/5 motor strength. There is residual horizontal nystagmus upon left gaze. - Continue IV Thiamine 500mg through 04/05 - Given low CIWA scores (last was 2), discontinue CIWA scoring (2) Lower back pain: Impression: Patient states her lower back pain is also significantly improved, was able to ambulate halls and perform independent transfer 04/04 AM. MRI L-spine without evidence of acute cord compression. Has not had urinary incontinence or urgency since admission in the ED. Denies saddle anesthesia, BLE weakness improving. - Given continued clinical improvement, no further intervention as this time - Per PT, OK for return to prior living situation with FWW assistive device Qualifiers: Back pain laterality: midline Chronicity: unspecified Sciatica presence: without sciatica Qualified Code(s): M54.50 - Low back pain, unspecified (3) Fever of unknown origin: Impression: Patient continues to be afebrile, respiratory PCR, CXR unremarkable. WBC WNL. Urinalysis with contamination however patient no longer reporting urinary incontinence/urgency. - Continue to monitor for s/s of infection - Continue daily CBC (4) Alcohol use: Impression: Denies prior withdrawal episodes of ETOH use. Per son, drank up to a fifth of vodka daily prior to quitting 5 months ago, but drank again on 04/02. Offered outpatient resources for continuing abstinence from alcohol, however patient expressed disinterest at this time. Councelled on consumption in moderation and potential adverse effects on health. - Continue multivitamin and folic acid supplementation - Discontinue CIWA due to low scores at this time - Continue to ute on safe alcohol consumption (5) Hypertension: Impression: BP controlled during this admission, last 129/80. - Continue home losartan - Continue home amlodipine Qualifiers: Hypertension type: unspecified Qualified Code(s): I10 - Essential (primary) hypertension (6) Constipation: Impression: Patient reports her last bowel movement was 04/02, however with minimal output. She endorses abdominal cramping and feeling the urge to void bowels, without success. - Start scheduled Miralax and Docusate Qualifiers: Constipation type: other constipation type Qualified Code(s): K59.09 - Other constipation
[2025-04-04] MEDS: LOSARTAN 50 MG TABLET PO SCH (08:20)
[2025-04-04] MEDS: ENOXAPARIN 40 MG/0.4 ML SYRINGE SUBQ SCH (08:20)
--- NOTE | 2025-04-04 11:30 | PT Plan of Care ---
PT Plan of Care Physical Therapy Plan of Care: Diagnosis Diagnosis AMS Diagnosis LBP, UTI Referring Provider Renetta Blankenship Patient Status Inpatient Chief Complaint Chief Complaint limited mobility, lightheaded Onset of Chief Complaint approx 3 days [employer]ARD [employer] Assessment Assessment Pt is a 65yo F referred for PT eval d/t limited mobility and ataxic gait. Admitted with AMS, LBP , UTI. Please see medical record for further PMH . Pt lives with in 2SH with 5STE and normally indep at baseline. Cleared for eval by hospitalist. Upon PT eval, A&Ox4, pt reports moderate abdominal pain but has been ambulating in room with FWW and nsg assist. Pt demonstrates safe transfer techniques indep to [facility] for bed and chair transfers. Amb in hallway using FWW > 200 with CGA overall. Completes stair training x5 steps with BL HR use and step over step pattern. Overall pt is presenting slightly below baseline given AD use but does not present with further acute PT need. When medically clear, PT rec dc home with increased CG support from for showering, cooking, cleaning. Pt may benefit from FWW use in the short term and can be provided one prior to dc or can borrow from [employer] or similar. Pt can follow up with OPPT as needed if balance and gait deficits persist. PT Plan of Care Frequency Evaluation only, no further P.T. Discharge Recommendations Discharge Location Previous Living Situation Support/Services Needed With assist DC Equipment Recommended Front wheeled walker Other to be issued or borrowed Transport Needs at Discharge Personal vehicle
--- NOTE | 2025-04-04 11:30 | MRI Report ---
PROCEDURE: MRI Lumbar Spine WO CLINICAL INDICATION: Low back pain, urinary incontinence, weakness back pain, urinary incontinence, weakness TECHNIQUE: Multiplanar, multisequence MRI of the lumbar spine was performed, without intravenous contrast. COMPARISON: Lumbar spine radiographs on 03/21/2025, CT abdomen pelvis on 02/17/2024 FINDINGS: Image quality: Diagnostic. General findings: Five nonrib-bearing lumbar vertebrae are assumed. No sagittal listhesis. Vertebral heights are maintained. Marrow: No edema or replacement. Cord: Normal cord signal. Cauda equina not thickened or clumped. Conus medullaris terminates at the L1 level. Paraspinal Muscles/Retroperitoneum: Mild fatty infiltration of the paraspinal musculature. [id number] analysis: T12-L1: No spinal canal or foraminal stenosis. L1-L2: No spinal canal or foraminal stenosis. L2-L3: Mild spinal canal stenosis due to symmetric disc bulge, ligamentum flavum thickening, and facet arthrosis. Mild bilateral neuroforaminal stenosis due to subarticular disc bulge and facet arthrosis. L3-L4: Mild spinal canal stenosis due to symmetric disc bulge, ligamentum flavum thickening, and facet arthrosis. Mild bilateral neuroforaminal stenosis due to subarticular disc bulge and facet arthrosis. L4-L5: Mild spinal canal stenosis due to symmetric disc bulge, ligamentum flavum thickening, and facet arthrosis. Mild bilateral neuroforaminal stenosis due to subarticular disc bulge and facet arthrosis. L5-S1: Mild spinal canal stenosis due to symmetric disc bulge, ligamentum flavum thickening, and facet arthrosis. Mild bilateral neuroforaminal stenosis due to subarticular disc bulge and facet arthrosis. Sacroiliac joints: Mild degenerative changes of the bilateral superior fibrous sacroiliac joints. IMPRESSION: Mild spinal canal and bilateral neuroforaminal stenosis from L2-3 to L5-S1. Reviewed by: Angelito Bangura MD on 04/04/2025 11:27 AM PDT Approved by: Angelito Bangura MD on 04/04/2025 11:27 AM PDT Station ID: [id number]
[2025-04-04] MEDS: ONDANSETRON 4 MG/2 ML VIAL IVP PRN (12:29)
[2025-04-04] MEDS: PRENATAL VITAMIN TABLET PO SCH (13:35)
[2025-04-04] MEDS: DOCUSATE SODIUM 250 MG CAPSULE PO SCH (13:35)
[2025-04-04] MEDS: KETOROLAC 15 MG/ML VIAL IVP STA (14:08)
[2025-04-04] MEDS: PRILOSEC OTC 20 MG PO SCH (16:36)
[2025-04-04] MEDS: MAG HYDROX/AL HYDROX/SIMETH 30 ML UDC PO PRN (17:23)
--- NOTE | 2025-04-05 09:05 | PROVIDER PROGRESS NOTE ---
Subjective Prog Note Date Prog Note Date: 04/05/25 Subjective Pt reports feeling: Improved Subjective: Ms. Tolbert is a 65-year-old female with PMH of ETOH use and HTN who presented with neurological complaints including dysarthria, gait instability, and BLE weakness secondary to suspected Wernicke's encephalopathy. Today, Ms. Tolbert' chief complaint is diarrhea and bowel urgency. She recieved Miralax and Docusate for reported constipation yesterday, and since last evening has had multiple episodes of diarrhea (~5 per documentation). Her subjective report yesterday was notable for abdominal cramping and feeling the urge to void her bowels but without success, prompting administration of Miralax and Docusate. The abdominal cramping and urges are no longer present today, she states feeling cleared of her stool. She denies nausea and vomiting. Neurologically, she reports continued improvement in her word finding, states she is more stable on her feet and hasn't been needing the FWW to ambulate. She worked with physical therapy yesterday and states it went well, she ambulated the samuels and successfully climbed and descended 5 steps. She denies dizziness, vertigo, SOB, chest pain, or palpitations. Continues to deny urinary urgency and incontinence. Current Medications Current Medications Current Medications: Current Medications Generic Name Dose Route Start Last Admin Trade Name Julia PRN Reason Stop Dose Admin Acetaminophen 1,000 mg 04/03/25 21:00 04/05/25 08:18 Acetaminophen 500 Mg Tablet PO 1,000 mg BID MARKELL Administration Al Hydroxide/Mg Hydroxide 30 ml 04/04/25 16:58 04/04/25 17:23 Mag Hydrox/Al Hydrox/Simeth 30 Ml Udc PO 30 ml Q4HR PRN Administration INDIGESTION Amlodipine Besylate 5 mg 04/04/25 09:00 04/05/25 08:19 Amlodipine 5 Mg Tablet PO 5 mg DAILY MARKELL Administration Diphenhydramine HCl 25 mg 04/04/25 19:50 04/04/25 20:07 Diphenhydramine 25 Mg Capsule PO 25 mg QPM PRN Administration Insomnia Docusate Sodium 250 - 500 mg 04/04/25 13:00 04/05/25 08:19 Docusate Sodium 250 Mg Capsule PO 250 mg DAILY MARKELL Administration Enoxaparin Sodium 40 mg 04/04/25 09:00 04/05/25 08:19 Enoxaparin 40 Mg/0.4 Ml Syringe SUBQ 40 mg DAILY MARKELL Administration Losartan Potassium 100 mg 04/04/25 09:00 04/05/25 08:20 Losartan 50 Mg Tablet PO 100 mg DAILY MARKELL Administration Ondansetron HCl 4 mg 04/03/25 14:48 Ondansetron Odt 4 Mg Tablet TL Q6HR PRN Nausea / Vomiting Ondansetron HCl 4 mg 04/03/25 14:48 04/04/25 12:29 Ondansetron 4 Mg/2 Ml Vial IVP 4 mg Q6HR PRN Administration Nausea / Vomiting Patient Own Med ( 1 each 04/04/25 16:00 04/05/25 08:28 Prilosec Otc 20mg) PO 1 each DAILY MARKELL Administration Polyethylene Glycol 17 gm 04/04/25 10:00 04/05/25 08:21 Polyethylene Glycol 3350 17 Gm Packet PO Not Given DAILY MARKELL Multivit/Folic Acid/Iron 1 tab 04/04/25 11:00 04/05/25 08:19 Vitamin Tablet PO 1 tab DAILYWM MARKELL Administration Sodium Chloride 10 ml 04/03/25 14:48 Sodium Chloride Flush 0.9% 10 Ml Syringe IVP PRN PRN NEEDED PER PROVIDER ORDERS Sodium Chloride 10 ml 04/03/25 17:00 04/05/25 08:21 Sodium Chloride Flush 0.9% 10 Ml Syringe IVP 10 ml 0100,0900,1700 MARKELL Administration Thiamine HCl 500 mg 04/03/25 14:00 04/05/25 05:47 Thiamine 100 Mg/1 Ml 2 Ml Mdv IVP 04/05/25 22:01 500 mg TID MARKELL Administration Objective Vital Signs/Intake & Output Vital Signs: Vital Signs x48h Temp Pulse Resp BP Pulse Ox 04/05/25 07:47 37.4 C 102 H 18 125/76 94 Intake & Output: Intake & Output 04/02/25 04/03/25 04/04/25 04/05/25 23:59 23:59 23:59 23:59 Intake Total 1551.2 / 1551.2 1090 / 1090 Balance 1551.2 / 1551.2 1090 / 1090 Weight (kg) 81.8 kg Lab Results 04/04/25 05:22 04/04/25 05:22 Assessment/Plan Problem List (1) Wernicke's disease: Impression: Although patient reports improvement, she continues to endorse some mild gait instability and expressive aphasia. On physical exam she demonstrates dysmetria in the LUE with 4/5 motor strength. There is residual horizontal nystagmus upon left gaze. - Continue IV Thiamine 500mg through 04/05 - Given low CIWA scores (last was 2), discontinue CIWA scoring (2) Lower back pain: Impression: Patient states her lower back pain is also significantly improved, was able to ambulate halls and perform independent transfer 04/04 AM. MRI L-spine without evidence of acute cord compression. Has not had urinary incontinence or urgency since admission in the ED. Denies saddle anesthesia, BLE weakness improving. - Given continued clinical improvement, no further intervention as this time - Per PT, OK for return to prior living situation with FWW assistive device Qualifiers: Back pain laterality: midline Chronicity: unspecified Sciatica presence: without sciatica Qualified Code(s): M54.50 - Low back pain, unspecified (3) Fever of unknown origin: Impression: Patient continues to be afebrile, respiratory PCR, CXR unremarkable. WBC WNL. Urinalysis with contamination however patient no longer reporting urinary incontinence/urgency. - Continue to monitor for s/s of infection - Continue daily CBC (4) Alcohol use: Impression: Denies prior withdrawal episodes of ETOH use. Per son, drank up to a fifth of vodka daily prior to quitting 5 months ago, but drank again on 04/02. Offered outpatient resources for continuing abstinence from alcohol, however patient expressed disinterest at this time. Councelled on consumption in moderation and potential adverse effects on health. - Continue multivitamin and folic acid supplementation - Discontinue CIWA due to low scores at this time - Continue to sleetmute on safe alcohol consumption (5) Hypertension: Impression: BP controlled during this admission, last 129/80. - Continue home losartan - Continue home amlodipine Qualifiers: Hypertension type: unspecified Qualified Code(s): I10 - Essential (primary) hypertension (6) Constipation: Impression: Patient reports her last bowel movement was 04/02, however with minimal output. She endorses abdominal cramping and feeling the urge to void bowels, without success. - Start scheduled Miralax and Docusate Qualifiers: Constipation type: other constipation type Qualified Code(s): K59.09 - Other constipation
--- NOTE | 2025-04-05 11:16 | Discharge Summary ---
Discharge Summary ALLERGIES Allergies Allergy/AdvReac Type Severity Reaction Status Date / Time No Known Drug Allergies Allergy Verified 04/03/25 08:40 MEDICATIONS Ambulatory Orders Medication Instructions Recorded Confirmed amlodipine 5 mg tablet 5 mg PO DAILY 03/21/2504/03 losartan 100 mg tablet 100 mg PO DAILY 03/21/25 PHYSICAL EXAM AT DISCHARGE Vital Signs: Vital Signs x48h Temp Pulse Resp BP Pulse Ox 04/05/25 07:47 99.3 F 102 H 18 125/76 94 LABS 04/04/25 05:22 04/04/25 05:22 Discharge Plan Discharge Condition: Serious Prescriptions: No Action amlodipine 5 mg tablet 5 mg PO DAILY losartan 100 mg tablet 100 mg PO DAILY Activity Restrictions/Additional Instructions: Your labs and CTs looked great yesterday and your MRI actually looks very good today. I do not think that you have had a stroke. Sometimes when you have weakness, it can be due to things like pinched nerve, vitamin deficiencies, or other neurologic conditions like MS or ALS. Your primary doctor can order some testing to evaluate for some of these things, but often, if a more chronic neurologic condition is suspected, a referral to a neurologic as needed. Is important that you make the next available appointment with your primary doctor and let the office know that you were just seen twice in the emergency department, so they can get you scheduled as soon as possible. Print Language: Peruvian Patient Instructions: ED Weakness Uncertain Cause Stand Alone Forms: PCP List Vitals documented within 30 minutes of discharge?: Yes
[2025-04-05] MEDS: LOPERAMIDE 2 MG CAPSULE PO PRN (14:28)
--- NOTE | 2025-04-05 15:03 | Discharge Summary ---
Discharge Summary Admit Date: 04/03/25 Discharge Date: 04/05/25 Discharging Provider: Dr. Renetta Blankenship MD Primary Care Provider: ROSA Quiroga Code Status: Attempt Resuscitation Discharge Facility Name: Home, Self-care DIAGNOSES Discharge Diagnoses with Status of Each Condition: Wernicke's encephalopathy, resolved Patient's neurologic symptoms on admission included dysarthria, expressive aphasia and gait instability. Upon discharge she notes significant improvement in expressive aphasia, minimal dysarthria, and is independently ambulating/transferring. On physical exam she demonstrates 5/5 strength and limited nystagmus, also improved from 4/5 strength and notable horizontal nystagmus on initial admission. Her CVA and infectious workup were negative. Patient completed a 3 day course of IV Thiamine 500mg q8h while inpatient. - Discharge on PO Thiamine 100mg daily and vitamin daily Lower back pain, stable Patient reports intermittent back pain described as tight and aching, this has been going on for years. It is most prominent when she is standing for more than an hour at work. She reports increased frequency and intensity, and also described urinary incontinence/urgency, thus a MRI of the lumbar spine was ordered which was notable for mild spinal canal and bilateral neuroforaminal stenosis from L2-3 and L5-S1 but no acute cord compression. - Discharge with recommended exercises for strengthening paraspinal muscles - Physical therapy Fever of unknown origin, resolved Subjective fevers reported by patient prior to admission, none during admission. CXR, respiratory panel, WBC WNL. Urinalysis was contaminated, however patient denies dysuria, and initial complaints of urinary urgency/incontinence resolved by hospital day 2. - No further intervention needed at this time Chronic alcohol use, stable Patient attempted cessation 5 months ago independently, did not experience any withdrawal symptoms. Heavy alcohol use per son, up to a fifth of vodka daily for years. She drank again on 04/03 prior to admission. CIWAs were low during admission <9. - Counselled on safe alcohol consumption - Patient stated she is not interested in rehabilitation, support groups, or resources for cessation Chronic essential hypertension, stable BP well-controlled while admitted. - Continue home losartan - Continue home amlodipine Constipation and diarrhea, stable and Melena, stable Patient reported constipation during afternoon of 04/04 and was given a bowel regimen consisting of Miralax and Docusate. Prior to this her last BM was 04/02 however with small volume. On the evening of 04/04 and into the morning of 04/05 patient experienced multiple episodes of diarrhea. She was given Loperamide x 1 with improvement. Prior to discharge patient also noted some blood in the stool of unclear quantity, does endorse a history of hemorrhoids. A H&H was ordered to assess for acute blood loss anemia, which was stable at 11.9. - Counselled on promoting healthy bowel habits, including diet rich in fiber, staying hydrated with water consumption, and promoting bowel motility with regular physical activity - Recommend scheduling outpatient colonoscopy to assess for polyps or other GI abnormalities HPI History of Present Illness: Ms. Tolbert is a 65-year-old female with PMH of ETOH use and HTN who presented with 3 days of subacute dysarthria, gait disturbance, and BLE weakness admitted for suspected Wernicke's encephalopathy. On Mar 31 her son noticed her being "totally out of it" with slurred and incoherent speech, episodes of mumbling, and gait instability. He was called over concerns of her driving under the influence, however per Mariano she underwent two breathalyzer tests which were negative. These symptoms continued until Apr 02 at which time Mariano presented to [facility] ED with the patient. According to records, a CTA H/N were performed (negative) and BAL was positive at 158. Due to her intoxication it was difficult to pinpoint potential causes, thus they were instructed to return the next day if her symptoms persisted after she was not intoxicated--they thus presented with persistent symptoms 04/03. CONSULTS | PROCEDURES Consultations: Physical Therapy, Occupational Therapy, Neurology Procedures: MRI BRAIN 04/03/25 EXAM: [id number] MRI/BRWO ([id number]) PROCEDURE: MRI Brain WO INDICATIONS: slurred speech, ataxia TECHNIQUE: Multisequence MRI of the brain was performed without intravenous contrast. COMPARISON: Head CT from yesterday, brain MRI dated 06/02/2016 FINDINGS: Image quality: Diagnostic. CSF Spaces: Basal cisterns are patent. No extra-axial fluid collections. Ventricles are normal in size and shape. Brain: No intracranial mass effect or hemorrhage. [place]/white matter interface is normal. Brainstem appears normal. Age-related volume loss and mild, age- appropriate small vessel ischemic change. Diffusion-weighted images demonstrate no acute ischemic insult. No chronic ischemic insults. Normal intravascular flow voids are present. Skull and face: Calvarium has normal marrow signal. Orbits appear normal. Sinuses: Sinuses and mastoids are clear. IMPRESSION: No acute intracranial process. Age-related volume loss and mild, age-appropriate small vessel ischemic change. CHEST X-RAY 04/03/25 EXAM: [id number] XR/[id number] ([id number]) EXAM: XR Chest 1V DATE: 04/03/2025 3:51 PM PDT INDICATION: 65 years Female with MADHURI TECHNIQUE: Single portable frontal view of the chest was obtained. LIMITATION: None. COMPARISON: 09/18/2019 FINDINGS: Lung parenchyma: No definite consolidation, interstitial abnormalities or focal lesion seen. Pleural spaces: No significant pleural effusion or definite focal lesion seen. Cardiomediastinum and chris: The cardiac silhouette and mediastinal contours are unremarkable. Osseous structures: No suspicious or acute focal lesion seen. Chest wall: No significant focal lesion seen. IMPRESSION: No signs of active cardiopulmonary disease. MRI LUMBAR SPINE 04/04/25 EXAM: [id number] MRI/LUMBWO ([id number]) PROCEDURE: MRI Lumbar Spine WO CLINICAL INDICATION: Low back pain, urinary incontinence, weakness back pain, urinary incontinence, weakness TECHNIQUE: Multiplanar, multisequence MRI of the lumbar spine was performed, without intravenous contrast. COMPARISON: Lumbar spine radiographs on 03/21/2025, CT abdomen pelvis on 02/17/2024 FINDINGS: Image quality: Diagnostic. General findings: Five nonrib-bearing lumbar vertebrae are assumed. No sagittal listhesis. Vertebral heights are maintained. Marrow: No edema or replacement. Cord: Normal cord signal. Cauda equina not thickened or clumped. Conus medullaris terminates at the L1 level. Paraspinal Muscles/Retroperitoneum: Mild fatty infiltration of the paraspinal musculature. [id number] analysis: T12-L1: No spinal canal or foraminal stenosis. L1-L2: No spinal canal or foraminal stenosis. L2-L3: Mild spinal canal stenosis due to symmetric disc bulge, ligamentum flavum thickening, and facet arthrosis. Mild bilateral neuroforaminal stenosis due to subarticular disc bulge and facet arthrosis. L3-L4: Mild spinal canal stenosis due to symmetric disc bulge, ligamentum flavum thickening, and facet arthrosis. Mild bilateral neuroforaminal stenosis due to subarticular disc bulge and facet arthrosis. L4-L5: Mild spinal canal stenosis due to symmetric disc bulge, ligamentum flavum thickening, and facet arthrosis. Mild bilateral neuroforaminal stenosis due to subarticular disc bulge and facet arthrosis. L5-S1: Mild spinal canal stenosis due to symmetric disc bulge, ligamentum flavum thickening, and facet arthrosis. Mild bilateral neuroforaminal stenosis due to subarticular disc bulge and facet arthrosis. Sacroiliac joints: Mild degenerative changes of the bilateral superior fibrous sacroiliac joints. IMPRESSION: Mild spinal canal and bilateral neuroforaminal stenosis from L2-3 to L5-S1. HOSPITAL COURSE Hospital Course: Estrellita Tolbert is a 65-year-old female who presented to [facility] ED on 04/03/25 with chief complaint of 3 days of dysarthria, gait instability, and BLE weakness secondary to suspected Wernicke's encephalopathy. She was brought in by her son, Cristhian, who noticed persistent clumsiness and incoherence since 03/31, at which time he had been called over concerns of the patient driving under the influence (breathalyzer tests x 2 were negative however). Of note, they initially presented on 04/02, however she was clearly intoxicated and found to have a BAL of 158, and was thus instructed to return the next day if symptoms continued despite being alert. Over the course of her two ED admissions, CTH and CTA H/N were unremarkable. Hematology and chemistry studies were grossly unremarkable. Given persistent word finding, gait instability, and dysarthria, the patient was admitted to the Hospitalist service. Recommendations by Dr. Gill and Dr. Rizo of Neurology included IV Thiamine 500mg q8h for 3 days for suspected Wernicke's encephalopathy. MRI was negative for acute intracranal process. Upon admission to the service, she continued to report intermittent word finding, and demonstrated notable horizontal nystagmus with dysmetria on the LUE. She also endorsed significant lower back pain, and urinary urgency/incontinence for which an MRI lumbar spine was ordered, demonstrating mild canal and bilateral neuroforaminal stenosis but no acute abrnormalities. She was given IV Thiamine as above for 3 days. By 04/04 she had significant improvement in moblity, ambulating in the samuels with physical therapy and ascending/descending 5 steps. She also reported modest but continued improvement in aphasia and dysarthria. By 04/05 her nystagmus was minimal as well. Of note, she was given Miralax and Docusate on 04/04 due to reports of constipation, which resulted in multiple episodes of diarrhea through 04/05. She endorsed some blood in her stool as well, thus an H&H was ordered, which was stable at 11.9. She was discharged on 04/05 after meeting the following criteria: transferring and ambulating independently, improvement in neurologic symptoms, vital signs stable. She is discharged with PO Thiamine 100mg daily and vitamin daily. She was instructed to schedule a follow-up with her primary care provider, Day LEE for post-hospitalization assessment. ALLERGIES Allergies Allergy/AdvReac Type Severity Reaction Status Date / Time No Known Drug Allergies Allergy Verified 04/03/25 08:40 MEDICATIONS Ambulatory Orders Medication Instructions Recorded Confirmed amlodipine 5 mg tablet 5 mg PO DAILY 03/21/2504/03 losartan 100 mg tablet 100 mg PO DAILY 03/21/25 vit,calcium 27-ferrous 1 tab PO DAILYWM #30 t abs 04/05/25 fum 60 mg iron-folic acid 1 mg tablet (Trinatal Rx 1) thiamine HCl (vitamin B1) 100 mg 100 mg PO DAILY #30 t abs 04/05/25 tablet PHYSICAL EXAM AT DISCHARGE Vital Signs: Vital Signs x48h Temp Pulse Resp BP Pulse Ox 04/05/25 07:47 37.4 C 102 H 18 125/76 94 General Appearance: positive No acute distress and Alert Eyes Bilateral: positive Normal inspection and PERRL ENT: positive ENT inspection nml and Pharynx nml Neck: positive Nml inspection, No JVD and Trachea midline Respiratory: positive Chest non-tender, No respiratory distress and Breath sounds nml Cardiovascular: positive Regular rate & rhythm, No murmur and No gallop Peripheral Pulses: positive 2+ Abdomen: positive Non-tender, Nml bowel sounds and No distention Skin: positive Color nml, No rash, Warm and Dry Extremities: positive Non-tender, Full ROM and Nml appearance Neurologic/Psychiatric: positive Oriented x3, Motor nml, Sensation nml and Mood/affect nml LABS 04/05/25 16:43 04/04/25 05:22 DIAGNOSTIC IMAGING Diagnostic Imaging Results: Final report reviewed FOLLOW UP Follow Up: She is instructed to follow-up with her primary care provider, Day LEE for post-hospitalization assessment. TIME SPENT Time Spent in Discharge (Minutes): 35 Discharge Plan Discharge Patient Disposition: 01 Home, Self Care Condition: Stable Medically Cleared Date:: 04/05/25 Prescriptions: New Trinatal Rx 1 60 mg iron-1 mg Tablet 1 tab PO DAILYWM Qty: 30 0RF thiamine HCl (vitamin B1) 100 mg tablet 100 mg PO DAILY Qty: 30 0RF Continued amlodipine 5 mg tablet 5 mg PO DAILY losartan 100 mg tablet 100 mg PO DAILY Activity Restrictions: Activity as Tolerated Health Concerns: You came in because you were having difficulty with balance, difficulty walking, and difficulty speaking. These were all new findings for you. Initially, we were worried that there may be something going on neurologically. We did get an MRI of your brain which was largely normalit did not show any bleeds, strokes, masses. You also had some lower back pain, as well as new symptoms of urinary incontinence. As such, we did get a lumbar spine MRI which shows some mild stenosis, or narrowing of some parts of your spine. The ER physician did also speak with teleneurology, and they were worried that because of your history of alcohol use, you may be deficient in a vitamin called thiamine, and are experiencing something called Warnicke's encephalopathy. As such, you were admitted to the hospital for a few days of high dose IV thiamine supplementation. I will be maintaining you on oral replacement on discharge. I would like you to follow-up very closely with your primary care provider. Please asked them for neurology consult if the symptoms persist or recur. We are glad you are feeling better, thank you for allowing us to take care of you. Print Language: Spanish Patient Instructions: Thiamine (Vitamin B1), ED Weakness Uncertain Cause Stand Alone Forms: PCP List Vitals documented within 30 minutes of discharge?: Yes
[2025-04-05 16:55] LABS: HCT - HEMATOCRIT 37.2 % (37.0-47.0); HGB - HEMOGLOBIN 11.9 g/dL (12.0-16.0)
[2025-04-05] MEDS: LOPERAMIDE 2 MG CAPSULE PO ONE (17:32)
[2025-04-05 17:43] VITALS: BP 119/62; TEMP 98.4; O2SAT 95
== END 2025-04-05 18:00 | disposition home or self-care (01) | DRG 641 ==
LOC: ED 08:04 → MS2 13:25
PROVIDERS: ADMIT Internal Medicine; ATTEND Internal Medicine